=== PATIENT | female | born 1985 | race Caucasian/White ===

== ENCOUNTER 2017-08-10 02:42 | Emergency (ER) | payer MEDICAID ==
[2017-08-10] MEDS ORDERED: Sodium Chloride 0.9% 1,000 ML IV SCH (03:15)
--- NOTE | 2017-08-10 03:17 | EDM.PDOC ---
ED HPI GENERAL MEDICAL PROBLEM - General Chief Complaint: Abdominal Pain Stated Complaint: R ABDOMINAL PAIN Time Seen by Provider: 08/10/17 03:00 Source of Information: Reports: Patient History Limitations: Reports: No Limitations - History of Present Illness INITIAL COMMENTS - FREE TEXT/NARRATIVE: 32-year-old female who has not felt well for the last 3-4 days has developed increasing right-sided abdominal pain for the past 12-24 hours. Nausea but no vomiting, no fevers or chills. Pain with movement and walking. Her only surgeries have been C-sections. She has Graves' disease and they have been adjusting her thyroid medication. Bowels are moving. 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: Reports: Head Trauma Psychiatric History: Reports: Anxiety, Depression, PTSD Endocrine/Metabolic History: Reports: Other (See Below) Other Endocrine/Metabolic History: graves disease - Infectious Disease History Infectious Disease History: Reports: Chicken Pox, Shingles - Past Surgical History HEENT Surgical History: Reports: Adenoidectomy, Tonsillectomy Female Surgical History: Reports: Section Social & Family History - Family History Family Medical History: Noncontributory - Tobacco Use Smoking Status *Q: Current Every Day Smoker Years of Tobacco use: 13 Packs/Tins Daily: 0.1 - Caffeine Use Caffeine Use: Reports: None - Recreational Drug Use Recreational Drug Use: No ED ROS GENERAL - Review of Systems Review Of Systems: See Below Constitutional: Reports: Malaise. Denies: Fever, Chills HEENT: Denies: Throat Pain Respiratory: Reports: Pleuritic Chest Pain. Denies: Shortness of Breath, Cough Cardiovascular: Denies: Chest Pain GI/Abdominal: Reports: Abdominal Pain, Nausea. Denies: Vomiting : Reports: No Symptoms Skin: Reports: No Symptoms Neurological: Denies: Headache ED EXAM, GI/ABD - Physical Exam Exam: See Below Exam Limited By: No Limitations General Appearance: Alert, Mild Distress (Looks uncomfortable) Eyes: Bilateral: Normal Appearance (No jaundice) Respiratory/Chest: No Respiratory Distress, Lungs Clear Cardiovascular: Regular Rate, Rhythm GI/Abdominal Exam: Soft, Tender (Very tender to palpation across the right abdomen, especially the lower abdomen with guarding and moderate rebound) Course - Vital Signs Last Recorded V/S: Last Vital Signs Temp 95.3 F L 08/10/17 02:53 Pulse 61 08/10/17 04:30 Resp 16 08/10/17 04:30 BP 105/73 08/10/17 04:30 Pulse Ox 100 08/10/17 04:30 - Orders/Labs/Meds Orders: Active Orders 24 hr Category Date Time Status Abdomen Pelvis w Cont [CT] Stat Exams 08/10/17 03:50 Taken Labs: Laboratory Tests 08/10/17 08/10/17 08/10/17 Range/Units 03:12 03:12 03:20 WBC 3.9 L (4.5-11.0) K/uL RBC 4.35 (3.30-5.50) M/uL Hgb 13.0 (12.0-15.0) g/dL Hct 39.4 (36.0-48.0) % MCV 91 (80-98) fL MCH 30 (27-31) pg MCHC 33 (32-36) % Plt Count 185 (150-400) K/uL Neut % (Auto) 35 L (36-66) % Lymph % (Auto) 50 H (24-44) % [place] % (Auto) 10 H (2-6) % Eos % (Auto) 4 (2-4) % Baso % (Auto) 1 (0-1) % Sodium (140-148) mmol/L Potassium (3.6-5.2) mmol/L Chloride (100-108) mmol/L Carbon Dioxide (21-32) mmol/L Anion Gap (5.0-14.0) mmol/L BUN (7-18) mg/dL Creatinine (0.6-1.0) mg/dL Est Cr Clr Drug Dosing mL/min Estimated GFR (MDRD) (>60) Glucose (74-106) mg/dL Calcium (8.5-10.1) mg/dL Total Bilirubin (0.2-1.0) mg/dL AST (15-37) U/L ALT (12-78) U/L Alkaline Phosphatase (46-116) U/L Total Protein (6.4-8.2) g/dL Albumin (3.4-5.0) g/dL Globulin (2.3-3.5) g/dL Albumin/Globulin Ratio (1.2-2.2) Amylase (25-115) U/L Lipase (73-393) U/L Urine Color Yellow Urine Appearance Clear Urine pH 7.0 (4.5-8.0) Ur Specific [place] 1.010 (1.008-1.030) Urine Protein Negative (NEGATIVE) mg/dL Urine Glucose (UA) Normal (NEGATIVE) mg/dL Urine Ketones Negative (NEGATIVE) mg/dL Urine Occult Blood Negative (NEGATIVE) Urine Nitrite Negative (NEGATIVE) Urine Bilirubin Negative (NEGATIVE) Urine Urobilinogen Normal (NORMAL) mg/dL Ur Leukocyte Esterase Moderate (NEGATIVE) Urine RBC 0-5 (0-5) Urine WBC 5-10 H (0-5) Ur Epithelial Cells Few Amorphous Sediment Not seen Urine Bacteria Moderate Urine Mucus Not seen Urine HCG, Qual Negative 08/10/17 Range/Units 03:20 WBC (4.5-11.0) K/uL RBC (3.30-5.50) M/uL Hgb (12.0-15.0) g/dL Hct (36.0-48.0) % MCV (80-98) fL MCH (27-31) pg MCHC (32-36) % Plt Count (150-400) K/uL Neut % (Auto) (36-66) % Lymph % (Auto) (24-44) % [place] % (Auto) (2-6) % Eos % (Auto) (2-4) % Baso % (Auto) (0-1) % Sodium 142 (140-148) mmol/L Potassium 3.4 L (3.6-5.2) mmol/L Chloride 104 (100-108) mmol/L Carbon Dioxide 27 (21-32) mmol/L Anion Gap 14.4 H (5.0-14.0) mmol/L BUN 9 (7-18) mg/dL Creatinine 0.8 (0.6-1.0) mg/dL Est Cr Clr Drug Dosing 98.18 mL/min Estimated GFR (MDRD) > 60 (>60) Glucose 87 (74-106) mg/dL Calcium 8.3 L (8.5-10.1) mg/dL Total Bilirubin 0.3 (0.2-1.0) mg/dL AST 27 (15-37) U/L ALT 16 (12-78) U/L Alkaline Phosphatase 37 L (46-116) U/L Total Protein 7.3 (6.4-8.2) g/dL Albumin 3.7 (3.4-5.0) g/dL Globulin 3.6 H (2.3-3.5) g/dL Albumin/Globulin Ratio 1.0 L (1.2-2.2) Amylase 79 (25-115) U/L Lipase 258 (73-393) U/L Urine Color Urine Appearance Urine pH (4.5-8.0) Ur Specific [place] (1.008-1.030) Urine Protein (NEGATIVE) mg/dL Urine Glucose (UA) (NEGATIVE) mg/dL Urine Ketones (NEGATIVE) mg/dL Urine Occult Blood (NEGATIVE) Urine Nitrite (NEGATIVE) Urine Bilirubin (NEGATIVE) Urine Urobilinogen (NORMAL) mg/dL Ur Leukocyte Esterase (NEGATIVE) Urine RBC (0-5) Urine WBC (0-5) Ur Epithelial Cells Amorphous Sediment Urine Bacteria Urine Mucus Urine HCG, Qual Meds: Medications Discontinued Medications Generic Name Dose Route Start Last Admin Trade Name Freq PRN Reason Stop Dose Admin Sodium Chloride 1,000 mls @ 500 mls/hr 08/10/17 03:15 08/10/17 03:24 Normal Saline IV 500 mls/hr ASDIRECTED BETSY Administration Sodium Chloride 72 mls @ 3.2 mls/sec 08/10/17 04:11 08/10/17 04:21 Normal Saline IV 08/10/17 04:12 3.2 mls/sec ASDIRECTED STA Administration Iopamidol 100 ml 08/10/17 04:11 08/10/17 04:21 Isovue-300 (61%) IV 08/10/17 04:12 100 ml . DIRECTED STA Administration Ketorolac Tromethamine 30 mg 08/10/17 04:51 08/10/17 04:56 Toradol IVPUSH 08/10/17 04:52 30 mg ONETIME ONE Administration - Re-Assessments/Exams Free Text/Narrative Re-Assessment/Exam: 08/10/17 03:16 Normal saline at 500 mL an hour was started, CBC, CMP, amylase and lipase were obtained as well as a UA with urine . Intent is to image the abdomen with CT scan after labs return. 08/10/17 04:44 White count was only 4200 with a very high percentage of lymphocytes and monocytes relatively. UA was generally clear, urine was negative. CMP was basically unremarkable. A CT with IV contrast was then obtained of the abdomen and pelvis. 08/10/17 04:49 CT really showed no acute findings. She was given 30 mg of Toradol through the IV, and encouraged to give it 1 or 2 more days assist just might be a viral process running its course. She can return if worsening. Departure - Departure Time of Disposition: 05:05 Disposition: Home, Self-Care 01 Condition: Good Clinical Impression: Abdominal pain Qualifiers: Abdominal location: right lower quadrant Qualified Code(s): R10.31 - Right lower quadrant pain - Discharge Information Instructions: Viral Gastroenteritis, Adult, [id number] Referrals: PCP,None [Primary Care Provider] - Forms: ED Department Discharge Care Plan Goals: Concentrated on fluids, and increase diet as tolerated. Increase activity as tolerated and return anytime if worsening or consider rechecking in 2-3 days if not improving satisfactorily. - My Orders Last 24 Hours: My Active Orders 08/10/17 03:50 Abdomen Pelvis w Cont [CT] Stat - Assessment/Plan Last 24 Hours: My Active Orders 08/10/17 03:50 Abdomen Pelvis w Cont [CT] Stat
[2017-08-10] MEDS ORDERED: Iopamidol 612 MG/ML 100 ML Bottle IV STA (04:11)
[2017-08-10] MEDS ORDERED: Ketorolac 30 MG/ML SDV IVPUSH ONE (04:51)
== END 2017-08-10 05:22 | disposition home or self-care (01) ==
LOC: JP.ED 02:42
DX: R10.31 Right lower quadrant pain (principal); Z79.899 Other long term (current) drug therapy; F17.210 Nicotine dependence, cigarettes, uncomplicated
CPT/HCPCS: 36415; 74177; 80053; 81001; 81025; 82150; 83690; 85025; 96361; 96374; 99284; J1885; J7030; J7040; Q9967

== ENCOUNTER 2019-08-10 18:15 | Inpatient (IN) | payer MEDICAID ==
--- NOTE | 2019-08-10 19:26 | EDM.PDOC ---
ED HPI GENERAL MEDICAL PROBLEM - General Chief Complaint: Abdominal Pain Stated Complaint: MEDICAL VIA [facility] Time Seen by Provider: 08/10/19 19:38 Source of Information: Reports: Patient History Limitations: Reports: No Limitations - History of Present Illness INITIAL COMMENTS - FREE TEXT/NARRATIVE: 34 years old female patient presented to the ER with a chief complaint of abdominal pain started 5 days ago, intermittent, progressively getting worse, dull aching and sharp pain, due to her right flank area. Associated with nausea and vomiting. Fever of 103 yesterday. She thought she is constipated and started taking laxative. Now have loose stool. Denies any urinary frequency urgency or dysuria. Denies any blood in the urine or stool. Denies any chest pain or shortness breath. 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: Reports: Head Trauma, Migraines Psychiatric History: Reports: Anxiety, Depression, PTSD Endocrine/Metabolic History: Reports: Other (See Below) Other Endocrine/Metabolic History: graves disease - Infectious Disease History Infectious Disease History: Reports: Chicken Pox, Shingles - Past Surgical History HEENT Surgical History: Reports: Adenoidectomy, Tonsillectomy Female Surgical History: Reports: Section, Tubal Ligation Social & Family History - Family History Family Medical History: Noncontributory - Tobacco Use Smoking Status *Q: Current Every Day Smoker Years of Tobacco use: 20 Packs/Tins Daily: 0.2 Used Tobacco, but Quit: No Second Hand Smoke Exposure: Yes - Caffeine Use Caffeine Use: Reports: Soda - Recreational Drug Use Recreational Drug Use: No ED ROS GENERAL - Review of Systems Review Of Systems: Comprehensive ROS is negative, except as noted in HPI. ED EXAM, GI/ABD - Physical Exam Exam: See Below Exam Limited By: No Limitations General Appearance: Alert, WD/WN, No Apparent Distress, Anxious Eyes: Bilateral: Normal Appearance, EOMI Nose: Normal Inspection, Normal Mucosa, No Blood Throat/Mouth: Normal Inspection, Normal Lips, Normal Teeth, Normal Gums, Normal Oropharynx, Normal Voice, No Airway Compromise Head: Atraumatic, Normocephalic Neck: Normal Inspection, Supple, Non-Tender, Full Range of Motion Respiratory/Chest: No Respiratory Distress, Lungs Clear, Normal Breath Sounds, No Accessory Muscle Use, Chest Non-Tender Cardiovascular: Normal Peripheral Pulses, Regular Rate, Rhythm, No Edema, No Gallop, No JVD, No Murmur, No Rub GI/Abdominal Exam: Normal Bowel Sounds, No Organomegaly, No Distention, No Mass , Tender, Other (Tenderness of the right lower quadrant, left lower quadrant, right flank area. No guarding no rebound) Extremities: Normal Inspection, Normal Range of Motion, Non-Tender, Normal Capillary Refill, No Pedal Edema Neurological: Alert, Oriented, CN II-XII Intact, Normal Cognition, Normal Gait, Normal Reflexes, No Motor/Sensory Deficits Psychiatric: Anxious Skin Exam: Warm, Dry, Intact, Normal Color, No Rash Course - Vital Signs Last Recorded V/S: Last Vital Signs Temp 37.6 C 08/10/19 18:40 Pulse 91 08/10/19 20:13 Resp 18 08/10/19 20:13 BP 99/63 08/10/19 20:13 Pulse Ox 99 08/10/19 20:13 - Orders/Labs/Meds Orders: Active Orders 24 hr Category Date Time Status Iopamidol [Isovue-300 (61%)] Med 08/10/19 20:00 Active 100 ml IV . DIRECTED Sodium Chloride 0.9% [Normal Saline] 80 ml Med 08/10/19 20:00 Active IV ASDIRECTED Sodium Chloride 0.9% [Saline Flush] Med 08/10/19 19:47 Active 10 ml FLUSH ASDIRECTED PRN cefTRIAXone [Rocephin] 2 gm Med 08/10/19 20:39 Ordered Sodium Chloride 0.9% [Normal Saline] 50 ml IV ONETIME Medication Orders Sodium Chloride (Normal Saline) 80 mls @ 3 mls/sec IV ASDIRECTED BETSY Last Admin: 08/10/19 20:12 Dose: 3 mls/sec Ceftriaxone Sodium 2 gm/ (Sodium Chloride) 50 mls @ 100 mls/hr IV ONETIME ONE Stop: 08/10/19 21:08 Iopamidol (Isovue-300 (61%)) 100 ml IV . DIRECTED BESTY Last Admin: 08/10/19 20:12 Dose: 100 ml Sodium Chloride (Saline Flush) 10 ml FLUSH ASDIRECTED PRN PRN Reason: Keep Vein Open Last Admin: 08/10/19 20:12 Dose: 10 ml Labs: Laboratory Tests 08/10/19 08/10/19 08/10/19 Range/Units 18:39 18:39 18:39 WBC 10.2 (4.5-11.0) K/uL RBC 4.33 (3.30-5.50) M/uL Hgb 12.5 D (12.0-15.0) g/dL Hct 38.8 (36.0-48.0) % MCV 90 (80-98) fL MCH 29 (27-31) pg MCHC 32 (32-36) % Plt Count 184 (150-400) K/uL Neut % (Auto) 83 H (36-66) % Lymph % (Auto) 7 L (24-44) % [place] % (Auto) 10 H (2-6) % Eos % (Auto) 1 L (2-4) % Baso % (Auto) 0 (0-1) % Sodium 134 L (140-148) mmol/L Potassium 3.7 (3.6-5.2) mmol/L Chloride 96 L (100-108) mmol/L Carbon Dioxide 27 (21-32) mmol/L Anion Gap 14.7 H (5.0-14.0) mmol/L BUN 8 D (7-18) mg/dL Creatinine 1.0 (0.6-1.0) mg/dL Est Cr Clr Drug Dosing 77.08 mL/min Estimated GFR (MDRD) > 60 (>60) Glucose 97 (74-106) mg/dL Lactic Acid 1.2 (0.4-2.0) mmol/L Calcium 8.8 (8.5-10.1) mg/dL Total Bilirubin 1.2 H D (0.2-1.0) mg/dL AST 51 H D (15-37) U/L ALT 55 D (12-78) U/L Alkaline Phosphatase 100 D (46-116) U/L C-Reactive Protein 23.89 H (0.0-0.3) mg/dL Total Protein 7.4 (6.4-8.2) g/dL Albumin 3.1 L (3.4-5.0) g/dL Globulin 4.3 H (2.3-3.5) g/dL Albumin/Globulin Ratio 0.7 L (1.2-2.2) Lipase 50 L (73-393) U/L Free T4 0.91 (0.76-1.46) ng/dL TSH, Ultra Sensitive 31.294 H (0.358-3.740) uIU/mL Urine Color (YELLOW) Urine Appearance (CLEAR) Urine pH (5.0-8.0) Ur Specific [place] (1.008-1.030) Urine Protein (NEGATIVE) mg/dL Urine Glucose (UA) (NEGATIVE) mg/dL Urine Ketones (NEGATIVE) mg/dL Urine Occult Blood (NEGATIVE) Urine Nitrite (NEGATIVE) Urine Bilirubin (NEGATIVE) Urine Urobilinogen (0.2-1.0) EU/dL Ur Leukocyte Esterase (NEGATIVE) Urine RBC (0-5) Urine WBC (0-5) Ur Epithelial Cells Amorphous Sediment Urine Bacteria Urine Mucus Urine HCG, Qual Urine Opiates Screen (NEGATIVE) Ur Oxycodone Screen (NEGATIVE) Urine Methadone Screen (NEGATIVE) Ur Propoxyphene Screen (NEGATIVE) Ur Barbiturates Screen (NEGATIVE) Ur Tricyclics Screen (NEGATIVE) Ur Phencyclidine Scrn (NEGATIVE) Ur Amphetamine Screen (NEGATIVE) U Methamphetamines Scrn (NEGATIVE) Urine MDMA Screen (NEGATIVE) U Benzodiazepines Scrn (NEGATIVE) U Cocaine Metab Screen (NEGATIVE) U Marijuana (THC) Screen (NEGATIVE) 08/10/19 08/10/19 08/10/19 Range/Units 18:42 18:42 19:38 WBC (4.5-11.0) K/uL RBC (3.30-5.50) M/uL Hgb (12.0-15.0) g/dL Hct (36.0-48.0) % MCV (80-98) fL MCH (27-31) pg MCHC (32-36) % Plt Count (150-400) K/uL Neut % (Auto) (36-66) % Lymph % (Auto) (24-44) % [place] % (Auto) (2-6) % Eos % (Auto) (2-4) % Baso % (Auto) (0-1) % Sodium (140-148) mmol/L Potassium (3.6-5.2) mmol/L Chloride (100-108) mmol/L Carbon Dioxide (21-32) mmol/L Anion Gap (5.0-14.0) mmol/L BUN (7-18) mg/dL Creatinine (0.6-1.0) mg/dL Est Cr Clr Drug Dosing mL/min Estimated GFR (MDRD) (>60) Glucose (74-106) mg/dL Lactic Acid (0.4-2.0) mmol/L Calcium (8.5-10.1) mg/dL Total Bilirubin (0.2-1.0) mg/dL AST (15-37) U/L ALT (12-78) U/L Alkaline Phosphatase (46-116) U/L C-Reactive Protein (0.0-0.3) mg/dL Total Protein (6.4-8.2) g/dL Albumin (3.4-5.0) g/dL Globulin (2.3-3.5) g/dL Albumin/Globulin Ratio (1.2-2.2) Lipase (73-393) U/L Free T4 (0.76-1.46) ng/dL TSH, Ultra Sensitive (0.358-3.740) uIU/mL Urine Color Yellow (YELLOW) Urine Appearance Cloudy A (CLEAR) Urine pH 6.5 (5.0-8.0) Ur Specific [place] 1.010 (1.008-1.030) Urine Protein Trace H (NEGATIVE) mg/dL Urine Glucose (UA) Negative (NEGATIVE) mg/dL Urine Ketones Negative (NEGATIVE) mg/dL Urine Occult Blood Small H (NEGATIVE) Urine Nitrite Positive H (NEGATIVE) Urine Bilirubin Negative (NEGATIVE) Urine Urobilinogen 0.2 (0.2-1.0) EU/dL Ur Leukocyte Esterase Small H (NEGATIVE) Urine RBC 0-5 (0-5) Urine WBC Packed H (0-5) Ur Epithelial Cells Few Amorphous Sediment Not seen Urine Bacteria Many Urine Mucus Not seen Urine HCG, Qual Negative Urine Opiates Screen Negative (NEGATIVE) Ur Oxycodone Screen Negative (NEGATIVE) Urine Methadone Screen Negative (NEGATIVE) Ur Propoxyphene Screen Negative (NEGATIVE) Ur Barbiturates Screen Negative (NEGATIVE) Ur Tricyclics Screen Negative (NEGATIVE) Ur Phencyclidine Scrn Negative (NEGATIVE) Ur Amphetamine Screen Presumptive positive H (NEGATIVE) U Methamphetamines Scrn Presumptive positive H (NEGATIVE) Urine MDMA Screen Negative (NEGATIVE) U Benzodiazepines Scrn Negative (NEGATIVE) U Cocaine Metab Screen Negative (NEGATIVE) U Marijuana (THC) Screen Negative (NEGATIVE) Meds: Medications Generic Name Dose Route Start Last Admin Trade Name Freq PRN Reason Stop Dose Admin Sodium Chloride 80 mls @ 3 mls/sec 08/10/19 20:00 08/10/19 20:12 Normal Saline IV 3 mls/sec ASDIRECTED BETSY Administration Ceftriaxone Sodium 2 gm/ 50 mls @ 100 mls/hr 08/10/19 20:39 Sodium Chloride IV 08/10/19 21:08 ONETIME ONE Iopamidol 100 ml 08/10/19 20:00 08/10/19 20:12 Isovue-300 (61%) IV 100 ml . DIRECTED BETSY Administration Sodium Chloride 10 ml 08/10/19 19:47 08/10/19 20:12 Saline Flush FLUSH 10 ml ASDIRECTED PRN Administration Keep Vein Open Discontinued Medications Generic Name Dose Route Start Last Admin Trade Name Freq PRN Reason Stop Dose Admin Sodium Chloride 1,000 mls @ 999 mls/hr 08/10/19 19:34 08/10/19 20:08 Normal Saline IV 08/10/19 20:34 999 mls/hr .BOLUS STA Administration Morphine Sulfate 4 mg 08/10/19 19:35 08/10/19 19:58 Morphine IVPUSH 08/10/19 19:36 4 mg ONETIME ONE Administration Ondansetron HCl 4 mg 08/10/19 19:35 08/10/19 19:54 Zofran IVPUSH 08/10/19 19:36 4 mg ONETIME ONE Administration - Re-Assessments/Exams Free Text/Narrative Re-Assessment/Exam: 08/10/19 19:41 Patient was seen and examined shortly after arrival. The stable. Given 1 L normal saline bolus, 4 mg IV morphine, 4 mg IV Zofran. Lab and imaging reviewed. CT scan shows sign of right-sided pyelonephritis, urethritis, cystitis. Her TSH is very high. Urine is positive for meth. Given 2 g IV Rocephin. Case was discussed with Jennifer nurse practitioner and she accepted admission for further management. Patient agrees with the plan. Stable for admission. 08/10/19 20:44 Departure - Departure Time of Disposition: 20:43 Disposition: Admitted As Inpatient 66 Clinical Impression: Elevated TSH, UTI (urinary tract infection), Abdominal pain, Drug use, Pyelonephritis - Discharge Information Referrals: PCP,None [Primary Care Provider] - Forms: ED Department Discharge Sepsis Event Note - Evaluation Sepsis Screening Result: No Definite Risk - Focused Exam Vital Signs: Vital Signs Temp Pulse Resp BP Pulse Ox 08/10/19 20:13 91 18 99/63 99 08/10/19 18:40 37.6 C 93 16 106/56 L 100 08/10/19 18:33 37.6 C 93 16 106/56 L 100 Date Exam was Performed: 08/10/19 Time Exam was Performed: 20:43 - My Orders Last 24 Hours: My Active Orders 08/10/19 19:47 Sodium Chloride 0.9% [Saline Flush] 10 ml FLUSH ASDIRECTED PRN 08/10/19 20:00 Iopamidol [Isovue-300 (61%)] 100 ml IV . DIRECTED Sodium Chloride 0.9% [Normal Saline] 80 ml IV ASDIRECTED 08/10/19 20:39 cefTRIAXone [Rocephin] 2 gm Sodium Chloride 0.9% [Normal Saline] 50 ml IV ONETIME - Assessment/Plan Last 24 Hours: My Active Orders 08/10/19 19:47 Sodium Chloride 0.9% [Saline Flush] 10 ml FLUSH ASDIRECTED PRN 08/10/19 20:00 Iopamidol [Isovue-300 (61%)] 100 ml IV . DIRECTED Sodium Chloride 0.9% [Normal Saline] 80 ml IV ASDIRECTED 08/10/19 20:39 cefTRIAXone [Rocephin] 2 gm Sodium Chloride 0.9% [Normal Saline] 50 ml IV ONETIME Plan: Admission to [facility]
[2019-08-10] MEDS ORDERED: Sodium Chloride 0.9% 1,000 ML IV STA (19:34)
[2019-08-10] MEDS ORDERED: Morphine 4 MG/ML Syringe IVPUSH ONE (19:35)
[2019-08-10] MEDS ORDERED: Ondansetron 4 MG/2 ML SDV IVPUSH ONE (19:35)
[2019-08-10] MEDS ORDERED: Sodium Chloride 0.9% 10 ML Syringe FLUSH PRN (19:47)
[2019-08-10] MEDS ORDERED: Sodium Chloride 0.9% 80 ML IV SCH (20:00)
[2019-08-10] MEDS ORDERED: Iopamidol 612 MG/ML 100 ML Bottle IV SCH (20:00)
--- NOTE | 2019-08-10 20:38 | CRLCT ---
Indication: Lower abdominal pain. Technique: Multiple contiguous axial images were obtained from the lung bases to the symphysis pubis after the intravenous administration of 100 cc Isovue-300. Please note that all CT scans at this facility use dose modulation, iterative reconstruction, and/or weight-based dosing when appropriate to reduce radiation dose to as low as reasonably achievable. Comparison: August 10, 2017. Findings: The lung bases are clear. No infiltrate, pleural effusion, pneumothorax identified. Heart is normal in size. No pericardial effusions identified. Focal fatty infiltration of the liver is identified at the ligamentum teres. The liver, spleen, pancreas, adrenals, and kidneys are normal. No intrahepatic biliary ductal dilatation is identified. Irregularity of the upper pole of the right kidney is identified, stable. Thickening of the wall of the right ureter is identified. Thickening of the wall of the urinary bladder is identified. The right kidney has a striated appearance. The findings are worrisome for pyelonephritis, ureteritis, and cystitis. Irregularity of the superior pole the left kidney is identified with atrophy. This is stable. In the pelvis, the uterus is grossly normal. A probable small left ovarian cyst is identified. No free air or is identified within the abdomen or pelvis. Small amount of free fluid is identified within the pelvis. The small and large bowel are normal in caliber. A moderate amount of stool is identified within the colon. No lytic or blastic lesions of the spine are identified. Impression: Findings most consistent with a right-sided pyelonephritis, ureteritis, and cystitis. Irregularity of the superior pole of the left kidney, stable. The findings were called to Dr. Simpson at the time of this dictation Please note that all CT scans at this facility use dose modulation, iterative reconstruction, and/or weight-based dosing when appropriate to reduce radiation dose to as low as reasonably achievable. Dictated by Barbara Coughlin MD @ Aug 10 2019 8:27PM Signed by Dr. Barbara Coughlin @ Aug 10 2019 8:38PM
[2019-08-10] MEDS ORDERED: cefTRIAXone 2 GM in Sodium Chloride 0.9% 50 ML IV ONE (20:39)
--- NOTE | 2019-08-10 21:52 | PCM.HP.2 ---
H&P History of Present Illness - General Date of Service: 08/10/19 Admit Problem/Dx: Admission Diagnosis/Problem Admission Diagnosis/Problem Pyelonephritis Source of Information: Patient, EMS, Family, Provider, RN History Limitations: Reports: No Limitations - History of Present Illness Initial Comments - Free Text/Narative: 34 years old female patient presented to the ER with a chief complaint of abdominal pain started 5 days ago, intermittent, progressively getting worse, dull aching and sharp pain, due to her right flank area. Associated with nausea and vomiting. Fever of 103 yesterday. She thought she is constipated and started taking laxative. Now have loose stool. Denies any urinary frequency urgency or dysuria. Denies any blood in the urine or stool. Denies any chest pain or shortness breath. Right Lower Abdomen Pain Score (Numer Onset of Symptoms: Reports: Gradual Duration of Symptoms: Reports: Day(s): (four), Getting Worse Location: Reports: Abdomen, Radiates to (right lower back) Quality: Reports: Sharp, Stabbing, Throbbing Severity: Severe Improves with: Reports: None Worsens with: Reports: None Associated Symptoms: Reports: Fever/Chills, Loss of Appetite, Nausea/Vomiting, Weakness Right Lower Abdomen Pain Score (Numeric/FACES): 5 - Related Data Allergies/Adverse Reactions: Allergies Allergy/AdvReac Type Severity Reaction Status Date / Time No Known Allergies Allergy Verified 08/10/19 18:40 Home Medications: Home Meds Levothyroxine 175 mcg PO ACBREAKFAST 08/10/17 [History] Fluticasone Propionate [Flonase] 2 spray IN ASDIRECTED PRN 07/07/18 [History] Sertraline [Zoloft] 150 mg PO DAILY 08/10/19 [History] hydrOXYzine HCL [hydrOXYzine] 1 tab PO QID PRN 08/10/19 [History] lamoTRIgine [Lamotrigine] 1 tab PO DAILY 08/10/19 [History] 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: Neurological History: Reports: Head Trauma, Migraines Psychiatric History: Reports: Anxiety, Depression, PTSD Endocrine/Metabolic History: Reports: Other (See Below) Other Endocrine/Metabolic History: graves disease - Infectious Disease History Infectious Disease History: Reports: Chicken Pox, Shingles - Past Surgical History HEENT Surgical History: Reports: Adenoidectomy, Tonsillectomy Female Surgical History: Reports: Section, Tubal Ligation Social & Family History - Family History Family Medical History: Noncontributory - Tobacco Use Smoking Status *Q: Current Every Day Smoker Years of Tobacco use: 20 Packs/Tins Daily: 0.2 Used Tobacco, but Quit: No Second Hand Smoke Exposure: Yes - Caffeine Use Caffeine Use: Reports: Soda - Recreational Drug Use Recreational Drug Use: No - Living Situation & Occupation Living situation: Reports: Single Occupation: Employed (lives with her 4 children age 4 yr to 16 yrs. 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 States "someone" must of put meth in her food. Drew denies any drugs use. crying and sobbing. requesting retesting and social media sr strategy manager consult.) HEENT: Reports: No Symptoms, Other (no teeth present) Pulmonary: Reports: No Symptoms Cardiovascular: Reports: No Symptoms Gastrointestinal: Reports: Abdominal Pain, Constipation, Nausea, Vomiting Genitourinary: Reports: Flank Pain (right) Musculoskeletal: Reports: Back Pain (right lower) Skin: Reports: No Symptoms Psychiatric: Reports: Depression, Anxiety, Other (crying during the whole exam due to positive drug screen. she denies drug use.) Neurological: Reports: No Symptoms Hematologic/Lymphatic: Reports: No Symptoms Immunologic: Reports: No Symptoms Exam - Exam Exam: See Below - Vital Signs Vital Signs: Last Vital Signs Temp 37.6 C 08/10/19 18:40 Pulse 105 H 08/10/19 21:32 Resp 18 08/10/19 20:13 BP 115/78 08/10/19 21:32 Pulse Ox 100 08/10/19 21:32 Weight: 70.76 kg - Exam General: Alert, Oriented, Cooperative, Mild Distress (crying during the whole exam due to positive drug screen. denies drug use.), Other (crying with tears, Mom is soothing Drew. denies any drugs. Instructed Drew and her Mom we are not the drug Police, will not call Police for this, if children are involve notify CPS. Mom states kids are already in Foster care. ) HEENT: PERRLA, Mucosa Moist & [place], Nares Patent, Other (no teeth. mouth is pink. crying with tears.) Neck: Supple, Trachea Midline Lungs: Clear to Auscultation, Normal Respiratory Effort Cardiovascular: Regular Rate, Regular Rhythm, Normal S1, Normal S2 GI/Abdominal Exam: Normal Bowel Sounds, Soft, Tender (lower abdomen) (Female) Exam: Deferred Rectal (Female) Exam: Deferred Back Exam: Normal Inspection, CVA Tenderness (R) Extremities: Normal Inspection, Normal Range of Motion, Non-Tender, No Pedal Edema, Normal Capillary Refill Skin: Warm, Dry, Intact Neurological: Reflexes Equal Bilateral, Strength Equal Bilateral Neuro Extensive - Mental Status: Alert, Oriented x3, Normal Mood/Affect, Normal Cognition Psychiatric: Alert, Other (crying) - Patient Data Lab Results Last 24 hrs: Laboratory Results - last 24 hr 08/10/19 08/10/19 08/10/19 Range/Units 18:39 18:39 18:39 WBC 10.2 (4.5-11.0) K/uL RBC 4.33 (3.30-5.50) M/uL Hgb 12.5 D (12.0-15.0) g/dL Hct 38.8 (36.0-48.0) % MCV 90 (80-98) fL MCH 29 (27-31) pg MCHC 32 (32-36) % Plt Count 184 (150-400) K/uL Neut % (Auto) 83 H (36-66) % Lymph % (Auto) 7 L (24-44) % [place] % (Auto) 10 H (2-6) % Eos % (Auto) 1 L (2-4) % Baso % (Auto) 0 (0-1) % Sodium 134 L (140-148) mmol/L Potassium 3.7 (3.6-5.2) mmol/L Chloride 96 L (100-108) mmol/L Carbon Dioxide 27 (21-32) mmol/L Anion Gap 14.7 H (5.0-14.0) mmol/L BUN 8 D (7-18) mg/dL Creatinine 1.0 (0.6-1.0) mg/dL Est Cr Clr Drug Dosing 77.08 mL/min Estimated GFR (MDRD) > 60 (>60) Glucose 97 (74-106) mg/dL Lactic Acid 1.2 (0.4-2.0) mmol/L Calcium 8.8 (8.5-10.1) mg/dL Total Bilirubin 1.2 H D (0.2-1.0) mg/dL AST 51 H D (15-37) U/L ALT 55 D (12-78) U/L Alkaline Phosphatase 100 D (46-116) U/L C-Reactive Protein 23.89 H (0.0-0.3) mg/dL Total Protein 7.4 (6.4-8.2) g/dL Albumin 3.1 L (3.4-5.0) g/dL Globulin 4.3 H (2.3-3.5) g/dL Albumin/Globulin Ratio 0.7 L (1.2-2.2) Lipase 50 L (73-393) U/L Free T4 0.91 (0.76-1.46) ng/dL TSH, Ultra Sensitive 31.294 H (0.358-3.740) uIU/mL Urine Color (YELLOW) Urine Appearance (CLEAR) Urine pH (5.0-8.0) Ur Specific [place] (1.008-1.030) Urine Protein (NEGATIVE) mg/dL Urine Glucose (UA) (NEGATIVE) mg/dL Urine Ketones (NEGATIVE) mg/dL Urine Occult Blood (NEGATIVE) Urine Nitrite (NEGATIVE) Urine Bilirubin (NEGATIVE) Urine Urobilinogen (0.2-1.0) EU/dL Ur Leukocyte Esterase (NEGATIVE) Urine RBC (0-5) Urine WBC (0-5) Ur Epithelial Cells Amorphous Sediment Urine Bacteria Urine Mucus Urine HCG, Qual Urine Opiates Screen (NEGATIVE) Ur Oxycodone Screen (NEGATIVE) Urine Methadone Screen (NEGATIVE) Ur Propoxyphene Screen (NEGATIVE) Ur Barbiturates Screen (NEGATIVE) Ur Tricyclics Screen (NEGATIVE) Ur Phencyclidine Scrn (NEGATIVE) Ur Amphetamine Screen (NEGATIVE) U Methamphetamines Scrn (NEGATIVE) Urine MDMA Screen (NEGATIVE) U Benzodiazepines Scrn (NEGATIVE) U Cocaine Metab Screen (NEGATIVE) U Marijuana (THC) Screen (NEGATIVE) 08/10/19 08/10/19 08/10/19 Range/Units 18:42 18:42 19:38 WBC (4.5-11.0) K/uL RBC (3.30-5.50) M/uL Hgb (12.0-15.0) g/dL Hct (36.0-48.0) % MCV (80-98) fL MCH (27-31) pg MCHC (32-36) % Plt Count (150-400) K/uL Neut % (Auto) (36-66) % Lymph % (Auto) (24-44) % [place] % (Auto) (2-6) % Eos % (Auto) (2-4) % Baso % (Auto) (0-1) % Sodium (140-148) mmol/L Potassium (3.6-5.2) mmol/L Chloride (100-108) mmol/L Carbon Dioxide (21-32) mmol/L Anion Gap (5.0-14.0) mmol/L BUN (7-18) mg/dL Creatinine (0.6-1.0) mg/dL Est Cr Clr Drug Dosing mL/min Estimated GFR (MDRD) (>60) Glucose (74-106) mg/dL Lactic Acid (0.4-2.0) mmol/L Calcium (8.5-10.1) mg/dL Total Bilirubin (0.2-1.0) mg/dL AST (15-37) U/L ALT (12-78) U/L Alkaline Phosphatase (46-116) U/L C-Reactive Protein (0.0-0.3) mg/dL Total Protein (6.4-8.2) g/dL Albumin (3.4-5.0) g/dL Globulin (2.3-3.5) g/dL Albumin/Globulin Ratio (1.2-2.2) Lipase (73-393) U/L Free T4 (0.76-1.46) ng/dL TSH, Ultra Sensitive (0.358-3.740) uIU/mL Urine Color Yellow (YELLOW) Urine Appearance Cloudy A (CLEAR) Urine pH 6.5 (5.0-8.0) Ur Specific [place] 1.010 (1.008-1.030) Urine Protein Trace H (NEGATIVE) mg/dL Urine Glucose (UA) Negative (NEGATIVE) mg/dL Urine Ketones Negative (NEGATIVE) mg/dL Urine Occult Blood Small H (NEGATIVE) Urine Nitrite Positive H (NEGATIVE) Urine Bilirubin Negative (NEGATIVE) Urine Urobilinogen 0.2 (0.2-1.0) EU/dL Ur Leukocyte Esterase Small H (NEGATIVE) Urine RBC 0-5 (0-5) Urine WBC Packed H (0-5) Ur Epithelial Cells Few Amorphous Sediment Not seen Urine Bacteria Many Urine Mucus Not seen Urine HCG, Qual Negative Urine Opiates Screen Negative (NEGATIVE) Ur Oxycodone Screen Negative (NEGATIVE) Urine Methadone Screen Negative (NEGATIVE) Ur Propoxyphene Screen Negative (NEGATIVE) Ur Barbiturates Screen Negative (NEGATIVE) Ur Tricyclics Screen Negative (NEGATIVE) Ur Phencyclidine Scrn Negative (NEGATIVE) Ur Amphetamine Screen Presumptive positive H (NEGATIVE) U Methamphetamines Scrn Presumptive positive H (NEGATIVE) Urine MDMA Screen Negative (NEGATIVE) U Benzodiazepines Scrn Negative (NEGATIVE) U Cocaine Metab Screen Negative (NEGATIVE) U Marijuana (THC) Screen Negative (NEGATIVE) Result Diagrams: 08/10/19 18:39 08/10/19 18:39 Sepsis Event Note - Evaluation Sepsis Screening Result: No Definite Risk - Focused Exam Vital Signs: Vital Signs Temp Pulse Resp BP Pulse Ox 08/10/19 21:32 105 H 115/78 100 08/10/19 20:59 87 112/65 100 08/10/19 20:13 91 18 99/63 99 08/10/19 18:40 37.6 C 93 16 106/56 L 100 08/10/19 18:33 37.6 C 93 16 106/56 L 100 Date Exam was Performed: 08/10/19 Time Exam was Performed: 22:26 - Problem List (1) Pyelonephritis SNOMED Code(s): 74769106 ICD Code: N12 - TUBULO-INTERSTITIAL NEPHRITIS, NOT SPCF ACUTE OR CHRONIC Status: Acute Current Visit: Yes (2) Drug use SNOMED Code(s): 876694409 ICD Code: F19.90 - OTHER PSYCHOACTIVE SUBSTANCE USE, UNSPECIFIED, UNCOMPLICATED Status: Acute Current Visit: Yes (3) Elevated TSH SNOMED Code(s): 183815663 ICD Code: R79.89 - OTHER SPECIFIED ABNORMAL FINDINGS OF BLOOD CHEMISTRY Status: Acute Current Visit: Yes Problem List Initiated/Reviewed/Updated: Yes Orders Last 24hrs: Active Orders 24 hr Category Date Time Status Patient Status Manage Transfer [TRANSFER] Routine ADT 01/14/20 21:35 Active AMPHETAMINE SCREEN RFLX Routine Lab 08/10/19 21:43 Ordered Iopamidol [Isovue-300 (61%)] Med 08/10/19 20:00 Active 100 ml IV . DIRECTED Sodium Chloride 0.9% [Normal Saline] 80 ml Med 08/10/19 20:00 Active IV ASDIRECTED Sodium Chloride 0.9% [Saline Flush] Med 08/10/19 19:47 Active 10 ml FLUSH ASDIRECTED PRN Resuscitation Status Routine Resus Stat 08/10/19 21:36 Ordered Medication Orders Sodium Chloride (Normal Saline) 80 mls @ 3 mls/sec IV ASDIRECTED BETSY Last Admin: 08/10/19 20:12 Dose: 3 mls/sec Iopamidol (Isovue-300 (61%)) 100 ml IV . DIRECTED [facility] Last Admin: 08/10/19 20:12 Dose: 100 ml Sodium Chloride (Saline Flush) 10 ml FLUSH ASDIRECTED PRN PRN Reason: Keep Vein Open Last Admin: 08/10/19 20:12 Dose: 10 ml Assessment/Plan Comment:: ASSESSMENT AND PLAN: pyelonephritis right sided. This is a 34 year old female present to ER via EMS with reports of 4 days of abdominal pain, nausea, vomiting and diarrhea. Today called the ambulance because unable to get out of bed due to weakness. ER work-up labs wbc 10.2, elevated LFT, TSH. CT scan of abdomen-pelvis shows right sided pyelonephritis, ureteritis and cystitis. Given 1 L normal saline bolus, 4 mg IV morphine, 4 mg IV Zofran. Lab and imaging reviewed. Urine is positive for meth. Given 2 g IV Rocephin. will admit for IV fluids, IV antibiotics, anti-emetics. Drew and her family agree with plan of care. Pyelonephritis -IV fluids Normal Saline 125ml/hr for hydration -IV Rocephin 2 gram every 24 hours -Medication for pain and nausea -am labs CBC, BMP Hx of drug use- denies current use -positive urine drug screen for amphetamine and methamphetamine -confirmation testing ordered -consult to social media sr strategy manager Elevated TSH -restart Synthroid 175 mg., next on Friday MAINTENANCE ISSUES -DVT Prophylaxis ambulatory -GI prophylaxis- not indicated -Otero catheter not indicated -Nutrition regular diet -Nicotine dependence Nicotine Patch at 7 mg topical daily CODE STATUS FULL ADMISSION This patient will be admitted to observation status, expect no more than one night hospital stay for evaluation and management of problems outline above. DISPOSITION anticipate discharge to home after the hospital stay PRIMARY CARE PROVIDER SUSAN Hager HOSPITALIST Dr. James
[2019-08-10] MEDS ORDERED: Morphine 2 MG/ML SYRINGE IVPUSH PRN (22:19)
[2019-08-10] MEDS ORDERED: hydrOXYzine HCl 25 MG Tab PO PRN (22:19)
[2019-08-10] MEDS ORDERED: LORazepam 2 MG/ML SDV IV PRN (22:19)
[2019-08-10] MEDS ORDERED: Albuterol 0.083% 2.5 MG/3 ML Neb Soln NEB PRN (22:19)
[2019-08-10] MEDS: Acetaminophen 325 MG Tab PO PRN (22:51)
[2019-08-10] MEDS: Nicotine 7 MG/24 Hr Patch TRDERM SCH (22:52)
[2019-08-10] MEDS: Docusate Sodium 100 MG Cap PO SCH (22:52)
[2019-08-10] MEDS: Sertraline 50 MG Tab PO SCH (22:52)
[2019-08-10] MEDS: Ibuprofen 600 MG Tab PO PRN (23:53)
[2019-08-10] MEDS: Sodium Chloride 0.9% 1,000 ML IV SCH (23:54)
[2019-08-11] MEDS: Sodium Chloride 0.9% 1,000 ML IV SCH ×3 (01:07→20:17)
[2019-08-11] MEDS ORDERED: Non-Formulary Medication 1 Each (Levothyroxine [Levothyroxine] 175 MCG) PO SCH (07:30)
[2019-08-11] MEDS ORDERED: FLU Vacc QS2019-20(6MOS+)/PF 60 MCG/0.5 ML SYRINGE IM ONE (10:00)
[2019-08-11] MEDS: Sertraline 50 MG Tab PO SCH (10:13)
[2019-08-11] MEDS: lamoTRIgine 25 MG Tab PO SCH (10:14)
[2019-08-11] MEDS: Levothyroxine 100 MCG Tab PO SCH (10:15)
[2019-08-11] MEDS: Levothyroxine 25 MCG Tab PO SCH (10:15)
[2019-08-11] MEDS: Docusate Sodium 100 MG Cap PO SCH ×2 (10:15→20:05)
[2019-08-11] MEDS: Nicotine 7 MG/24 Hr Patch TRDERM SCH (10:16)
[2019-08-11] MEDS: Ondansetron 4 MG Tab.DIS PO PRN ×2 (10:26→20:05)
[2019-08-11] MEDS: oxyCODONE 5 MG Tab PO PRN ×2 (10:28→20:05)
--- NOTE | 2019-08-11 13:27 | PCM.PN ---
- General Info Date of Service: 08/11/19 Subjective Update: Patient did have a fever last night after admission but otherwise there were no acute issues. She has had nausea this morning and did have an emesis. Creatinine is slightly higher today. Still complaining of a fair amount of flank pain as well as pain into her back that radiates down into the legs. She is complaining of muscle aches and muscle cramps, mostly in her legs. No complaints of shortness of breath. Functional Status: Reports: Pain Controlled. Denies: Tolerating Diet - Review of Systems General: Reports: Fever Gastrointestinal: Reports: Abdominal Pain, Nausea, Vomiting - Patient Data Vitals - Most Recent: Last Vital Signs Temp 37.4 C 08/11/19 11:00 Pulse 97 08/11/19 11:00 Resp 20 08/11/19 11:00 BP 100/63 08/11/19 11:00 Pulse Ox 96 08/11/19 13:00 Weight - Most Recent: 67.222 kg I&O - Last 24 Hours: Intake & Output 08/10/19 08/11/19 08/11/19 22:59 06:59 14:59 Intake Total 300 1140 Output Total 500 Balance 300 640 Lab Results Last 24 Hours: Laboratory Results - last 24 hr 08/10/19 08/10/19 08/10/19 Range/Units 18:39 18:39 18:39 WBC 10.2 (4.5-11.0) K/uL RBC 4.33 (3.30-5.50) M/uL Hgb 12.5 D (12.0-15.0) g/dL Hct 38.8 (36.0-48.0) % MCV 90 (80-98) fL MCH 29 (27-31) pg MCHC 32 (32-36) % Plt Count 184 (150-400) K/uL Neut % (Auto) 83 H (36-66) % Lymph % (Auto) 7 L (24-44) % [place] % (Auto) 10 H (2-6) % Eos % (Auto) 1 L (2-4) % Baso % (Auto) 0 (0-1) % Sodium 134 L (140-148) mmol/L Potassium 3.7 (3.6-5.2) mmol/L Chloride 96 L (100-108) mmol/L Carbon Dioxide 27 (21-32) mmol/L Anion Gap 14.7 H (5.0-14.0) mmol/L BUN 8 D (7-18) mg/dL Creatinine 1.0 (0.6-1.0) mg/dL Est Cr Clr Drug Dosing 77.08 mL/min Estimated GFR (MDRD) > 60 (>60) Glucose 97 (74-106) mg/dL Lactic Acid 1.2 (0.4-2.0) mmol/L Calcium 8.8 (8.5-10.1) mg/dL Total Bilirubin 1.2 H D (0.2-1.0) mg/dL AST 51 H D (15-37) U/L ALT 55 D (12-78) U/L Alkaline Phosphatase 100 D (46-116) U/L C-Reactive Protein 23.89 H (0.0-0.3) mg/dL Total Protein 7.4 (6.4-8.2) g/dL Albumin 3.1 L (3.4-5.0) g/dL Globulin 4.3 H (2.3-3.5) g/dL Albumin/Globulin Ratio 0.7 L (1.2-2.2) Lipase 50 L (73-393) U/L Free T4 0.91 (0.76-1.46) ng/dL TSH, Ultra Sensitive 31.294 H (0.358-3.740) uIU/mL Urine Color (YELLOW) Urine Appearance (CLEAR) Urine pH (5.0-8.0) Ur Specific [place] (1.008-1.030) Urine Protein (NEGATIVE) mg/dL Urine Glucose (UA) (NEGATIVE) mg/dL Urine Ketones (NEGATIVE) mg/dL Urine Occult Blood (NEGATIVE) Urine Nitrite (NEGATIVE) Urine Bilirubin (NEGATIVE) Urine Urobilinogen (0.2-1.0) EU/dL Ur Leukocyte Esterase (NEGATIVE) Urine RBC (0-5) Urine WBC (0-5) Ur Epithelial Cells Amorphous Sediment Urine Bacteria Urine Mucus Urine HCG, Qual Urine Opiates Screen (NEGATIVE) Ur Oxycodone Screen (NEGATIVE) Urine Methadone Screen (NEGATIVE) Ur Propoxyphene Screen (NEGATIVE) Ur Barbiturates Screen (NEGATIVE) Ur Tricyclics Screen (NEGATIVE) Ur Phencyclidine Scrn (NEGATIVE) Ur Amphetamine Screen (NEGATIVE) U Methamphetamines Scrn (NEGATIVE) Urine MDMA Screen (NEGATIVE) U Benzodiazepines Scrn (NEGATIVE) U Cocaine Metab Screen (NEGATIVE) U Marijuana (THC) Screen (NEGATIVE) 08/10/19 08/10/19 08/10/19 Range/Units 18:42 18:42 19:38 WBC (4.5-11.0) K/uL RBC (3.30-5.50) M/uL Hgb (12.0-15.0) g/dL Hct (36.0-48.0) % MCV (80-98) fL MCH (27-31) pg MCHC (32-36) % Plt Count (150-400) K/uL Neut % (Auto) (36-66) % Lymph % (Auto) (24-44) % [place] % (Auto) (2-6) % Eos % (Auto) (2-4) % Baso % (Auto) (0-1) % Sodium (140-148) mmol/L Potassium (3.6-5.2) mmol/L Chloride (100-108) mmol/L Carbon Dioxide (21-32) mmol/L Anion Gap (5.0-14.0) mmol/L BUN (7-18) mg/dL Creatinine (0.6-1.0) mg/dL Est Cr Clr Drug Dosing mL/min Estimated GFR (MDRD) (>60) Glucose (74-106) mg/dL Lactic Acid (0.4-2.0) mmol/L Calcium (8.5-10.1) mg/dL Total Bilirubin (0.2-1.0) mg/dL AST (15-37) U/L ALT (12-78) U/L Alkaline Phosphatase (46-116) U/L C-Reactive Protein (0.0-0.3) mg/dL Total Protein (6.4-8.2) g/dL Albumin (3.4-5.0) g/dL Globulin (2.3-3.5) g/dL Albumin/Globulin Ratio (1.2-2.2) Lipase (73-393) U/L Free T4 (0.76-1.46) ng/dL TSH, Ultra Sensitive (0.358-3.740) uIU/mL Urine Color Yellow (YELLOW) Urine Appearance Cloudy A (CLEAR) Urine pH 6.5 (5.0-8.0) Ur Specific [place] 1.010 (1.008-1.030) Urine Protein Trace H (NEGATIVE) mg/dL Urine Glucose (UA) Negative (NEGATIVE) mg/dL Urine Ketones Negative (NEGATIVE) mg/dL Urine Occult Blood Small H (NEGATIVE) Urine Nitrite Positive H (NEGATIVE) Urine Bilirubin Negative (NEGATIVE) Urine Urobilinogen 0.2 (0.2-1.0) EU/dL Ur Leukocyte Esterase Small H (NEGATIVE) Urine RBC 0-5 (0-5) Urine WBC Packed H (0-5) Ur Epithelial Cells Few Amorphous Sediment Not seen Urine Bacteria Many Urine Mucus Not seen Urine HCG, Qual Negative Urine Opiates Screen Negative (NEGATIVE) Ur Oxycodone Screen Negative (NEGATIVE) Urine Methadone Screen Negative (NEGATIVE) Ur Propoxyphene Screen Negative (NEGATIVE) Ur Barbiturates Screen Negative (NEGATIVE) Ur Tricyclics Screen Negative (NEGATIVE) Ur Phencyclidine Scrn Negative (NEGATIVE) Ur Amphetamine Screen Presumptive positive H (NEGATIVE) U Methamphetamines Scrn Presumptive positive H (NEGATIVE) Urine MDMA Screen Negative (NEGATIVE) U Benzodiazepines Scrn Negative (NEGATIVE) U Cocaine Metab Screen Negative (NEGATIVE) U Marijuana (THC) Screen Negative (NEGATIVE) 08/11/19 08/11/19 Range/Units 04:00 04:00 WBC 11.1 H (4.5-11.0) K/uL RBC 3.90 (3.30-5.50) M/uL Hgb 11.2 L (12.0-15.0) g/dL Hct 35.3 L (36.0-48.0) % MCV 91 (80-98) fL MCH 29 (27-31) pg MCHC 32 (32-36) % Plt Count 168 (150-400) K/uL Neut % (Auto) 84 H (36-66) % Lymph % (Auto) 5 L (24-44) % [place] % (Auto) 10 H (2-6) % Eos % (Auto) 0 L (2-4) % Baso % (Auto) 0 (0-1) % Sodium 134 L (140-148) mmol/L Potassium 3.6 (3.6-5.2) mmol/L Chloride 99 L (100-108) mmol/L Carbon Dioxide 25 (21-32) mmol/L Anion Gap 13.6 (5.0-14.0) mmol/L BUN 9 (7-18) mg/dL Creatinine 1.2 H (0.6-1.0) mg/dL Est Cr Clr Drug Dosing 64.24 mL/min Estimated GFR (MDRD) 51 L (>60) Glucose 110 H (74-106) mg/dL Lactic Acid (0.4-2.0) mmol/L Calcium 8.0 L (8.5-10.1) mg/dL Total Bilirubin (0.2-1.0) mg/dL AST (15-37) U/L ALT (12-78) U/L Alkaline Phosphatase (46-116) U/L C-Reactive Protein (0.0-0.3) mg/dL Total Protein (6.4-8.2) g/dL Albumin (3.4-5.0) g/dL Globulin (2.3-3.5) g/dL Albumin/Globulin Ratio (1.2-2.2) Lipase (73-393) U/L Free T4 (0.76-1.46) ng/dL TSH, Ultra Sensitive (0.358-3.740) uIU/mL Urine Color (YELLOW) Urine Appearance (CLEAR) Urine pH (5.0-8.0) Ur Specific [place] (1.008-1.030) Urine Protein (NEGATIVE) mg/dL Urine Glucose (UA) (NEGATIVE) mg/dL Urine Ketones (NEGATIVE) mg/dL Urine Occult Blood (NEGATIVE) Urine Nitrite (NEGATIVE) Urine Bilirubin (NEGATIVE) Urine Urobilinogen (0.2-1.0) EU/dL Ur Leukocyte Esterase (NEGATIVE) Urine RBC (0-5) Urine WBC (0-5) Ur Epithelial Cells Amorphous Sediment Urine Bacteria Urine Mucus Urine HCG, Qual Urine Opiates Screen (NEGATIVE) Ur Oxycodone Screen (NEGATIVE) Urine Methadone Screen (NEGATIVE) Ur Propoxyphene Screen (NEGATIVE) Ur Barbiturates Screen (NEGATIVE) Ur Tricyclics Screen (NEGATIVE) Ur Phencyclidine Scrn (NEGATIVE) Ur Amphetamine Screen (NEGATIVE) U Methamphetamines Scrn (NEGATIVE) Urine MDMA Screen (NEGATIVE) U Benzodiazepines Scrn (NEGATIVE) U Cocaine Metab Screen (NEGATIVE) U Marijuana (THC) Screen (NEGATIVE) Med Orders - Current: Current Medications Acetaminophen (Tylenol) 650 mg PO Q4H PRN PRN Reason: Pain (Mild 1-3)/fever Last Admin: 08/10/19 22:51 Dose: 650 mg Albuterol (Proventil Neb Soln) 2.5 mg NEB Q4H PRN PRN Reason: Shortness Of Breath/wheezing Docusate Sodium (Colace) 100 mg PO BID [facility] Last Admin: 08/11/19 10:15 Dose: 100 mg Hydroxyzine HCl (Atarax) 25 mg PO QID PRN PRN Reason: Anxiety Ceftriaxone Sodium 2 gm/ (Sodium Chloride) 50 mls @ 100 mls/hr IV Q24H [facility] Sodium Chloride (Normal Saline) 1,000 mls @ 125 mls/hr IV ASDIRECTED [facility] Last Admin: 08/11/19 12:40 Dose: 125 mls/hr Ibuprofen (Motrin) 600 mg PO Q6H PRN PRN Reason: Pain/Fever Last Admin: 08/10/19 23:53 Dose: 600 mg Lamotrigine (Lamotrigine) 25 mg PO DAILY [facility] Last Admin: 08/11/19 10:14 Dose: 25 mg Levothyroxine Sodium (Synthroid) 100 mcg PO ACBREAKFAST [facility] Last Admin: 08/11/19 10:15 Dose: 100 mcg Levothyroxine Sodium (Levothyroxine) 75 mcg PO ACBREAKFAST [facility] Last Admin: 08/11/19 10:15 Dose: 75 mcg Lorazepam (Ativan) 1 mg IV Q6H PRN PRN Reason: Nausea/Vomiting Last Admin: 08/11/19 01:05 Dose: 1 mg Melatonin (Melatonin) 6 mg PO BEDTIME [facility] Morphine Sulfate (Morphine) 2 mg IVPUSH Q2H PRN PRN Reason: Pain (severe 7-10) Nicotine (Habitrol) 7 mg TRDERM DAILY [facility] Last Admin: 08/11/19 10:16 Dose: 7 mg Ondansetron HCl (Zofran Odt) 4 mg PO Q6H PRN PRN Reason: Nausea able to take PO Last Admin: 08/11/19 10:26 Dose: 4 mg Oxycodone HCl (Oxycodone) 5 mg PO Q4H PRN PRN Reason: Pain (moderate 4-6) Last Admin: 08/11/19 10:28 Dose: 5 mg Sertraline HCl (Zoloft) 150 mg PO DAILY [facility] Last Admin: 08/11/19 10:13 Dose: 150 mg Sodium Chloride (Saline Flush) 10 ml FLUSH ASDIRECTED PRN PRN Reason: Keep Vein Open Last Admin: 08/10/19 20:12 Dose: 10 ml Discontinued Medications Sodium Chloride (Normal Saline) 1,000 mls @ 999 mls/hr IV .BOLUS STA Stop: 08/10/19 20:34 Last Admin: 08/10/19 20:08 Dose: 999 mls/hr Sodium Chloride (Normal Saline) 80 mls @ 3 mls/sec IV ASDIRECTED [facility] Last Admin: 08/10/19 20:12 Dose: 3 mls/sec Ceftriaxone Sodium 2 gm/ (Sodium Chloride) 50 mls @ 100 mls/hr IV ONETIME ONE Stop: 08/10/19 21:08 Last Admin: 08/10/19 20:55 Dose: 100 mls/hr Influenza Virus Vaccine (Pharmacy To Dose - Influenza Vaccine) 1 each IM ONETIME ONE Stop: 08/11/19 10:01 Influenza Virus Vaccine (Fluzone Quad [id number] Syringe) 60 mcg IM .ONCE ONE Stop: 08/11/19 10:01 Iopamidol (Isovue-300 (61%)) 100 ml IV . DIRECTED [facility] Last Admin: 08/10/19 20:12 Dose: 100 ml Morphine Sulfate (Morphine) 4 mg IVPUSH ONETIME ONE Stop: 08/10/19 19:36 Last Admin: 08/10/19 19:58 Dose: 4 mg Ondansetron HCl (Zofran) 4 mg IVPUSH ONETIME ONE Stop: 08/10/19 19:36 Last Admin: 08/10/19 19:54 Dose: 4 mg - Exam Quality Assessment: No: Supplemental Oxygen General: Alert, Oriented, Cooperative, No Acute Distress Lungs: Normal Respiratory Effort. No: Wheezing Cardiovascular: Regular Rate, Regular Rhythm GI/Abdominal Exam: Soft, No Distention Extremities: No Pedal Edema. No: Increased Warmth Skin: Warm, Dry Psy/Mental Status: Alert, Normal Affect Sepsis Event Note - Evaluation Sepsis Screening Result: No Definite Risk - Focused Exam Vital Signs: Vital Signs Temp Pulse Resp BP Pulse Ox 08/11/19 13:00 96 08/11/19 11:00 37.4 C 97 20 100/63 100 08/11/19 07:40 96 08/11/19 07:00 36.6 C 81 16 91/76 97 08/11/19 02:34 36.2 C 88 18 95/73 96 08/11/19 01:47 94 L Date Exam was Performed: 08/11/19 Time Exam was Performed: 14:04 - Problem List Review Problem List Initiated/Reviewed/Updated: Yes - My Orders Last 24 Hours: My Active Orders 08/11/19 13:24 Admission Status [Patient Status] [ADT] Routine 08/11/19 13:25 Antiembolic Devices [RC] .Routine SCD [Sequential Compression Device] [OM.PC] Routine 08/11/19 13:30 Potassium Chloride 20 MEQ,Lidocaine 1% 2 ML IN 100ML NS @ 50 MLS/HR Potassium Chloride 20 meq Lidocaine 1% [Xylocaine 1%] 2 ml Sodium Chloride 0.9% [Normal Saline] 100 ml IV Q2H 08/12/19 05:00 BASIC METABOLIC PANEL,BMP [CHEM] Timed CBC W/O DIFF,HEMOGRAM [HEME] Timed (1) - Plan Plan:: ASSESSMENT AND PLAN: Right pyelonephritis-increasing creatinine since admission, still having nausea and vomiting as well as a fair amount of pain. Urine culture is pending at this time. -Continue IV fluids -Continue ceftriaxone -Pain control -Follow-up urine culture Hx of drug abuse- denies current use but positive urine drug screen for amphetamine and methamphetamine -confirmation testing ordered Elevated TSH-patient has not been taking her medications. -Continue levothyroxine -Outpatient follow-up of TSH in several weeks Tobacco dependence-encourage cessation -Nicotine patch MAINTENANCE ISSUES -DVT Prophylaxis ambulatory -GI prophylaxis- not indicated -Otero catheter not indicated -Nutrition regular diet ADMISSION Drew was initially admitted to observation status but with rising creatinine, nausea with vomiting and significant pain she will transition to inpatient status for further management of her pyelonephritis. DISPOSITION anticipate discharge to home after the hospital stay Jesus James MD
[2019-08-11] MEDS: Potassium Chloride 20 MEQ, Lidocaine 1% 2 ML in Sodium Chloride 0.9% 100 ML IV SCH ×2 (15:10→17:19)
[2019-08-11] MEDS: Ibuprofen 600 MG Tab PO PRN (18:07)
[2019-08-11] MEDS: Melatonin 3 MG Tab PO SCH (20:05)
[2019-08-11] MEDS: cefTRIAXone 2 GM in Sodium Chloride 0.9% 50 ML IV SCH (20:06)
[2019-08-12] MEDS: oxyCODONE 5 MG Tab PO PRN ×2 (00:05→08:30)
[2019-08-12] MEDS: Sodium Chloride 0.9% 1,000 ML IV SCH ×2 (04:51→13:20)
[2019-08-12] MEDS: Levothyroxine 25 MCG Tab PO SCH (07:52)
[2019-08-12] MEDS: Levothyroxine 100 MCG Tab PO SCH (07:52)
[2019-08-12] MEDS: Ondansetron 4 MG Tab.DIS PO PRN ×2 (08:30→16:41)
[2019-08-12] MEDS: Docusate Sodium 100 MG Cap PO SCH ×2 (08:32→20:22)
[2019-08-12] MEDS: Nicotine 7 MG/24 Hr Patch TRDERM SCH (08:32)
[2019-08-12] MEDS: Sertraline 50 MG Tab PO SCH (08:33)
[2019-08-12] MEDS: lamoTRIgine 25 MG Tab PO SCH (08:33)
[2019-08-12] MEDS ORDERED: FLU Vacc QS2019-20(6MOS+)/PF 60 MCG/0.5 ML SYRINGE IM ONE (10:00)
--- NOTE | 2019-08-12 10:04 | PCM.PN ---
- General Info Date of Service: 08/12/19 Subjective Update: No acute events overnight. She still has mild nausea but this is getting better and she was able to keep breakfast down though intake was not great. She did have a low-grade fever overnight. Still having right flank pain with radiation to the right lower pelvis but this is a little better today. No diarrhea. No shortness of breath. Functional Status: Reports: Pain Controlled - Review of Systems General: Reports: Fever Gastrointestinal: Reports: Nausea - Patient Data Vitals - Most Recent: Last Vital Signs Temp 36.8 C 08/12/19 07:36 Pulse 78 08/12/19 07:36 Resp 14 08/12/19 07:36 BP 95/61 08/12/19 07:36 Pulse Ox 95 08/12/19 07:36 Weight - Most Recent: 68.855 kg I&O - Last 24 Hours: Intake & Output 08/11/19 08/12/19 08/12/19 22:59 06:59 14:59 Intake Total 1845 1870 Output Total 750 600 Balance 1095 1270 Lab Results Last 24 Hours: Laboratory Results - last 24 hr 08/12/19 08/12/19 Range/Units 06:07 06:07 WBC 6.0 (4.5-11.0) K/uL RBC 3.49 (3.30-5.50) M/uL Hgb 9.9 L (12.0-15.0) g/dL Hct 32.2 L (36.0-48.0) % MCV 92 (80-98) fL MCH 28 (27-31) pg MCHC 31 L (32-36) % Plt Count 160 (150-400) K/uL Sodium 134 L (140-148) mmol/L Potassium 4.6 (3.6-5.2) mmol/L Chloride 103 (100-108) mmol/L Carbon Dioxide 26 (21-32) mmol/L Anion Gap 9.6 (5.0-14.0) mmol/L BUN 9 (7-18) mg/dL Creatinine 1.0 (0.6-1.0) mg/dL Est Cr Clr Drug Dosing 76.88 mL/min Estimated GFR (MDRD) > 60 (>60) Glucose 87 (74-106) mg/dL Calcium 7.8 L (8.5-10.1) mg/dL Med Orders - Current: Current Medications Acetaminophen (Tylenol) 650 mg PO Q4H PRN PRN Reason: Pain (Mild 1-3)/fever Last Admin: 08/10/19 22:51 Dose: 650 mg Albuterol (Proventil Neb Soln) 2.5 mg NEB Q4H PRN PRN Reason: Shortness Of Breath/wheezing Docusate Sodium (Colace) 100 mg PO BID [facility] Last Admin: 08/12/19 08:32 Dose: 100 mg Hydroxyzine HCl (Atarax) 25 mg PO QID PRN PRN Reason: Anxiety Ceftriaxone Sodium 2 gm/ (Sodium Chloride) 50 mls @ 100 mls/hr IV Q24H [facility] Last Admin: 08/11/19 20:06 Dose: 100 mls/hr Sodium Chloride (Normal Saline) 1,000 mls @ 75 mls/hr IV ASDIRECTED [facility] Ibuprofen (Motrin) 600 mg PO Q6H PRN PRN Reason: Pain/Fever Last Admin: 08/11/19 18:07 Dose: 600 mg Lamotrigine (Lamotrigine) 25 mg PO DAILY [facility] Last Admin: 08/12/19 08:33 Dose: 25 mg Levothyroxine Sodium (Synthroid) 100 mcg PO ACBREAKFAST [facility] Last Admin: 08/12/19 07:52 Dose: 100 mcg Levothyroxine Sodium (Levothyroxine) 75 mcg PO ACBREAKFAST [facility] Last Admin: 08/12/19 07:52 Dose: 75 mcg Lorazepam (Ativan) 1 mg IV Q6H PRN PRN Reason: Nausea/Vomiting Last Admin: 08/11/19 01:05 Dose: 1 mg Melatonin (Melatonin) 6 mg PO BEDTIME [facility] Last Admin: 08/11/19 20:05 Dose: 6 mg Morphine Sulfate (Morphine) 2 mg IVPUSH Q2H PRN PRN Reason: Pain (severe 7-10) Nicotine (Habitrol) 7 mg TRDERM DAILY [facility] Last Admin: 08/12/19 08:32 Dose: 7 mg Ondansetron HCl (Zofran Odt) 4 mg PO Q6H PRN PRN Reason: Nausea able to take PO Last Admin: 08/12/19 08:30 Dose: 4 mg Oxycodone HCl (Oxycodone) 5 mg PO Q4H PRN PRN Reason: Pain (moderate 4-6) Last Admin: 08/12/19 08:30 Dose: 5 mg Sertraline HCl (Zoloft) 150 mg PO DAILY [facility] Last Admin: 08/12/19 08:33 Dose: 150 mg Sodium Chloride (Saline Flush) 10 ml FLUSH ASDIRECTED PRN PRN Reason: Keep Vein Open Last Admin: 08/10/19 20:12 Dose: 10 ml Discontinued Medications Sodium Chloride (Normal Saline) 1,000 mls @ 999 mls/hr IV .BOLUS STA Stop: 08/10/19 20:34 Last Admin: 08/10/19 20:08 Dose: 999 mls/hr Sodium Chloride (Normal Saline) 80 mls @ 3 mls/sec IV ASDIRECTED [facility] Last Admin: 08/10/19 20:12 Dose: 3 mls/sec Ceftriaxone Sodium 2 gm/ (Sodium Chloride) 50 mls @ 100 mls/hr IV ONETIME ONE Stop: 08/10/19 21:08 Last Admin: 08/10/19 20:55 Dose: 100 mls/hr Sodium Chloride (Normal Saline) 1,000 mls @ 125 mls/hr IV ASDIRECTED [facility] Last Admin: 08/12/19 04:51 Dose: 125 mls/hr Potassium Chloride 20 meq/Lidocaine HCl 2 ml/ Sodium Chloride 112 mls @ 56 mls/ hr IV Q2H [facility] Stop: 08/11/19 18:29 Last Admin: 08/11/19 17:19 Dose: 56 mls/hr Influenza Virus Vaccine (Pharmacy To Dose - Influenza Vaccine) 1 each IM ONETIME ONE Stop: 08/11/19 10:01 Influenza Virus Vaccine (Fluzone Quad Syringe) 60 mcg IM .ONCE ONE Stop: 08/11/19 10:01 Last Admin: 08/11/19 20:51 Dose: Not Given Influenza Virus Vaccine (Fluzone Quad Syringe) 60 mcg IM .ONCE ONE Stop: 08/12/19 10:01 Iopamidol (Isovue-300 (61%)) 100 ml IV . DIRECTED [facility] Last Admin: 08/10/19 20:12 Dose: 100 ml Morphine Sulfate (Morphine) 4 mg IVPUSH ONETIME ONE Stop: 08/10/19 19:36 Last Admin: 08/10/19 19:58 Dose: 4 mg Ondansetron HCl (Zofran) 4 mg IVPUSH ONETIME ONE Stop: 08/10/19 19:36 Last Admin: 08/10/19 19:54 Dose: 4 mg - Exam Quality Assessment: No: Supplemental Oxygen General: Alert, Oriented, Cooperative, No Acute Distress Lungs: Normal Respiratory Effort Cardiovascular: Regular Rate, Regular Rhythm GI/Abdominal Exam: Soft, No Distention Extremities: No Pedal Edema Psy/Mental Status: Alert, Normal Affect Sepsis Event Note - Evaluation Sepsis Screening Result: No Definite Risk - Focused Exam Vital Signs: Vital Signs Temp Pulse Resp BP Pulse Ox Pulse Ox 08/12/19 07:36 36.8 C 78 14 95/61 95 08/12/19 04:00 36.3 C 73 16 95/60 96 08/12/19 00:00 36.2 C 70 16 91/58 L 95 08/11/19 22:19 98 Date Exam was Performed: 08/12/19 Time Exam was Performed: 14:30 - Problem List Review Problem List Initiated/Reviewed/Updated: Yes - My Orders Last 24 Hours: My Active Orders 08/11/19 13:24 Admission Status [Patient Status] [ADT] Routine 08/11/19 13:25 Antiembolic Devices [RC] .Routine SCD [Sequential Compression Device] [OM.PC] Routine 08/12/19 10:10 Sodium Chloride 0.9% [Normal Saline] 1,000 ml IV ASDIRECTED - Plan Plan:: ASSESSMENT AND PLAN: Right pyelonephritis-kidney function and urine output have been better with extra fluids. Clinically she is slowly getting better and pain is decreasing but oral intake is still not great with persistent nausea. Unfortunately no urine culture was set up at the time of admission. -Continue IV fluids -Continue ceftriaxone -Pain control -nausea control Hx of drug abuse- denies current use but positive urine drug screen for amphetamine and methamphetamine -confirmation testing ordered Elevated TSH-patient has not been taking her medications. -Continue levothyroxine -Outpatient follow-up of TSH in several weeks Tobacco dependence-encourage cessation -Nicotine patch MAINTENANCE ISSUES -DVT Prophylaxis ambulatory -GI prophylaxis- not indicated -Otero catheter not indicated -Nutrition regular diet DISPOSITION anticipate discharge to home after the hospital stay Jesus James MD
[2019-08-12] MEDS: Ibuprofen 600 MG Tab PO PRN (16:40)
[2019-08-12] MEDS: Melatonin 3 MG Tab PO SCH (20:22)
[2019-08-12] MEDS: cefTRIAXone 2 GM in Sodium Chloride 0.9% 50 ML IV SCH (20:22)
[2019-08-13] MEDS: Sodium Chloride 0.9% 1,000 ML IV SCH (03:36)
[2019-08-13] MEDS: Ibuprofen 600 MG Tab PO PRN ×2 (03:43→09:15)
[2019-08-13] MEDS: Acetaminophen 325 MG Tab PO PRN (05:48)
[2019-08-13] MEDS: Sertraline 50 MG Tab PO SCH (09:07)
[2019-08-13] MEDS: Docusate Sodium 100 MG Cap PO SCH (09:07)
[2019-08-13] MEDS: lamoTRIgine 25 MG Tab PO SCH (09:07)
[2019-08-13] MEDS: Nicotine 7 MG/24 Hr Patch TRDERM SCH (09:08)
[2019-08-13] MEDS: Levothyroxine 25 MCG Tab PO SCH (09:08)
[2019-08-13] MEDS: Levothyroxine 100 MCG Tab PO SCH (09:08)
--- NOTE | 2019-08-13 10:43 | PCM.DCSUM1 ---
Discharge Summary - Hospital Course Brief History: 34-year-old female with history of depression with anxiety, hypothyroidism who presented with several days of progressive abdominal pain. She was admitted for management of right-sided pyelonephritis with acute kidney injury. Diagnosis: Stroke: No - Discharge Data Discharge Date: 08/13/19 Discharge Disposition: Home, Self-Care 01 Condition: Good - Referral to Home Health Primary Care Physician: PCP None - Discharge Diagnosis/Problem(s) (1) Pyelonephritis SNOMED Code(s): 75263751 ICD Code: N12 - TUBULO-INTERSTITIAL NEPHRITIS, NOT SPCF ACUTE OR CHRONIC Status: Acute Current Visit: Yes (2) Acute kidney injury SNOMED Code(s): 15700210, 85201420 ICD Code: N17.9 - ACUTE KIDNEY FAILURE, UNSPECIFIED Status: Acute Current Visit: Yes (3) Elevated TSH SNOMED Code(s): 785721302 ICD Code: R79.89 - OTHER SPECIFIED ABNORMAL FINDINGS OF BLOOD CHEMISTRY Status: Acute Current Visit: Yes (4) Methamphetamine abuse SNOMED Code(s): 912699476 ICD Code: F15.10 - OTHER STIMULANT ABUSE, UNCOMPLICATED Status: Suspected Current Visit: Yes - Patient Summary/Data Labs Pending at D/C: Confirmatory test for methamphetamine Hospital Course: Drew presented to the emergency room with abdominal pain, nausea, vomiting and fever. Work-up in the emergency room was suggestive of right-sided pyelonephritis with ureteritis and cystitis as well. With her progressive symptoms as well as nausea with vomiting she was not thought to be safe for outpatient management. She was started on ceftriaxone as well as IV fluids and symptomatic management before admission to the hospital. Her urine drug screen in the emergency room was positive for methamphetamine but the patient denied having recently used methamphetamine. Confirmatory tests were sent but are pending at the time of discharge. Over the next several days we had slow but steady improvement. Her nausea improved and then resolved. Abdominal pain has been slowly improving. She has been tolerating regular diet with soft and bland foods. Her fevers have resolved. She did tolerate antibiotics. Unfortunately a urine culture was not set up at the time of presentation and this was not caught until 36 hours after admission so we do not have a urine culture to help guide antibiotic therapy. I am going to transition her to ciprofloxacin for the outpatient management. She is eating well and strength is improving so I believe she is safe for outpatient management at this time. She will need antibiotics for another week after hospital discharge. She does have a few pain pills for severe pain but will be utilizing ibuprofen and acetaminophen for mild to moderate pain. She has follow-up scheduled for next week. Also of note during the hospital stay was a very elevated TSH at 31. The patient does report that she has not been taking good care of herself and has not been taking her thyroid supplement. We did restart her thyroid supplement but she may benefit from a recheck about [address] if she consistently takes her medication. - Patient Instructions Diet: Regular Diet as Tolerated (Soft, bland and boring foods for the next several days) Activity: As Tolerated Driving: Do Not Drive (If taking pain pills) Showering/Bathing: May Shower Notify Provider of: Fever, Increased Pain, Nausea and/or Vomiting Other/Special Instructions: 1. You were in the hospital for management of pyelonephritis. Your condition has been improving with antibiotic therapy. I recommend ongoing antibiotic therapy with ciprofloxacin. You should take 500 mg twice daily. Your next dose outside of the hospital will be due around 9 PM tonight. You should alternate acetaminophen 650 mg every four hours and ibuprofen 600 mg every six hours for mild pain. I did provide a limited prescription for oxycodone for moderate or severe pain. 2. Drink plenty of fluids with a goal of keeping your urine clear or light yellow. - Discharge Plan *PRESCRIPTION DRUG MONITORING PROGRAM REVIEWED*: Not Applicable *COPY OF PRESCRIPTION DRUG MONITORING REPORT IN PATIENT [place]: Not Applicable Prescriptions/Med Rec: Ciprofloxacin [Ciprofloxacin HCl] 500 mg PO BID #14 tab oxyCODONE 5 mg PO Q6H PRN #5 tablet PRN Reason: Pain (Moderate 4-6) Home Medications: Home Meds Levothyroxine 175 mcg PO ACBREAKFAST 08/10/17 [History] Fluticasone Propionate [Flonase] 2 spray IN ASDIRECTED PRN 07/07/18 [History] Sertraline [Zoloft] 150 mg PO DAILY 08/10/19 [History] hydrOXYzine HCL [hydrOXYzine] 1 tab PO QID PRN 08/10/19 [History] lamoTRIgine [Lamotrigine] 1 tab PO DAILY 08/10/19 [History] Ciprofloxacin [Ciprofloxacin HCl] 500 mg PO BID #14 tab 08/13/19 [Rx] oxyCODONE 5 mg PO Q6H PRN #5 tablet 08/13/19 [Rx] Oxygen Therapy Mode: Room Air Patient Handouts: Pyelonephritis, Adult, [id number], Ciprofloxacin tablets Referrals: Neisha Wisdom PA-C [Ordering Only Provider] - 08/20/19 2:30 pm - Discharge Summary/Plan Comment DC Time >30 min.: No - Patient Data Vitals - Most Recent: Last Vital Signs Temp 36.4 C 08/13/19 03:38 Pulse 66 08/13/19 03:38 Resp 16 08/13/19 03:38 BP 100/62 08/13/19 03:38 Pulse Ox 95 08/13/19 03:38 Weight - Most Recent: 68.855 kg I&O - Last 24 hours: Intake & Output 08/12/19 08/13/19 08/13/19 22:59 06:59 14:59 Intake Total 2502 851 Output Total 1350 1100 Balance 1152 -249 Med Orders - Current: Current Medications Acetaminophen (Tylenol) 650 mg PO Q4H PRN PRN Reason: Pain (Mild 1-3)/fever Last Admin: 08/13/19 05:48 Dose: 650 mg Albuterol (Proventil Neb Soln) 2.5 mg NEB Q4H PRN PRN Reason: Shortness Of Breath/wheezing Docusate Sodium (Colace) 100 mg PO BID [facility] Last Admin: 08/13/19 09:07 Dose: 100 mg Hydroxyzine HCl (Atarax) 25 mg PO QID PRN PRN Reason: Anxiety Ceftriaxone Sodium 2 gm/ (Sodium Chloride) 50 mls @ 100 mls/hr IV Q24H [facility] Last Admin: 08/12/19 20:22 Dose: 100 mls/hr Sodium Chloride (Normal Saline) 1,000 mls @ 75 mls/hr IV ASDIRECTED [facility] Last Admin: 08/13/19 03:36 Dose: 75 mls/hr Ibuprofen (Motrin) 600 mg PO Q6H PRN PRN Reason: Pain/Fever Last Admin: 08/13/19 09:15 Dose: 600 mg Lamotrigine (Lamotrigine) 25 mg PO DAILY [facility] Last Admin: 08/13/19 09:07 Dose: 25 mg Levothyroxine Sodium (Synthroid) 100 mcg PO ACBREAKFAST [facility] Last Admin: 08/13/19 09:08 Dose: 100 mcg Levothyroxine Sodium (Levothyroxine) 75 mcg PO ACBREAKFAST [facility] Last Admin: 08/13/19 09:08 Dose: 75 mcg Lorazepam (Ativan) 1 mg IV Q6H PRN PRN Reason: Nausea/Vomiting Last Admin: 08/11/19 01:05 Dose: 1 mg Melatonin (Melatonin) 6 mg PO BEDTIME [facility] Last Admin: 08/12/19 20:22 Dose: 6 mg Morphine Sulfate (Morphine) 2 mg IVPUSH Q2H PRN PRN Reason: Pain (severe 7-10) Nicotine (Habitrol) 7 mg TRDERM DAILY [facility] Last Admin: 08/13/19 09:08 Dose: Not Given Ondansetron HCl (Zofran Odt) 4 mg PO Q6H PRN PRN Reason: Nausea able to take PO Last Admin: 08/12/19 16:41 Dose: 4 mg Oxycodone HCl (Oxycodone) 5 mg PO Q4H PRN PRN Reason: Pain (moderate 4-6) Last Admin: 08/12/19 08:30 Dose: 5 mg Sertraline HCl (Zoloft) 150 mg PO DAILY [facility] Last Admin: 08/13/19 09:07 Dose: 150 mg Sodium Chloride (Saline Flush) 10 ml FLUSH ASDIRECTED PRN PRN Reason: Keep Vein Open Last Admin: 08/10/19 20:12 Dose: 10 ml Discontinued Medications Sodium Chloride (Normal Saline) 1,000 mls @ 999 mls/hr IV .BOLUS STA Stop: 08/10/19 20:34 Last Admin: 08/10/19 20:08 Dose: 999 mls/hr Sodium Chloride (Normal Saline) 80 mls @ 3 mls/sec IV ASDIRECTED [facility] Last Admin: 08/10/19 20:12 Dose: 3 mls/sec Ceftriaxone Sodium 2 gm/ (Sodium Chloride) 50 mls @ 100 mls/hr IV ONETIME ONE Stop: 08/10/19 21:08 Last Admin: 08/10/19 20:55 Dose: 100 mls/hr Sodium Chloride (Normal Saline) 1,000 mls @ 125 mls/hr IV ASDIRECTED [facility] Last Admin: 01/16/20 04:51 Dose: 125 mls/hr Potassium Chloride 20 meq/Lidocaine HCl 2 ml/ Sodium Chloride 112 mls @ 56 mls/ hr IV Q2H [facility] Stop: 08/11/19 18:29 Last Admin: 08/11/19 17:19 Dose: 56 mls/hr Influenza Virus Vaccine (Pharmacy To Dose - Influenza Vaccine) 1 each IM ONETIME ONE Stop: 08/11/19 10:01 Influenza Virus Vaccine (Fluzone Quad Syringe) 60 mcg IM .ONCE ONE Stop: 08/11/19 10:01 Last Admin: 08/11/19 20:51 Dose: Not Given Influenza Virus Vaccine (Fluzone Quad Syringe) 60 mcg IM .ONCE ONE Stop: 08/12/19 10:01 Last Admin: 08/12/19 13:23 Dose: Not Given Iopamidol (Isovue-300 (61%)) 100 ml IV . DIRECTED [facility] Last Admin: 08/10/19 20:12 Dose: 100 ml Morphine Sulfate (Morphine) 4 mg IVPUSH ONETIME ONE Stop: 08/10/19 19:36 Last Admin: 08/10/19 19:58 Dose: 4 mg Ondansetron HCl (Zofran) 4 mg IVPUSH ONETIME ONE Stop: 08/10/19 19:36 Last Admin: 08/10/19 19:54 Dose: 4 mg - Exam Quality Assessment: Denies: Supplemental Oxygen General: Reports: Alert, Oriented, Cooperative, No Acute Distress Lungs: Reports: Clear to Auscultation, Normal Respiratory Effort Cardiovascular: Reports: Regular Rate, Regular Rhythm GI/Abdominal Exam: Soft, No Distention Extremities: No Pedal Edema Psy/Mental Status: Reports: Alert, Normal Affect
== END 2019-08-13 14:50 | disposition home or self-care (01) | DRG 690 ==
LOC: JP.ED 18:15 → JP.MS 21:35 → OBSVTOIN 08-11 13:24
PROVIDERS: ADMIT Internal Medicine; ATTEND Internal Medicine
DX: N10 Acute pyelonephritis (principal); N17.9 Acute kidney failure, unspecified; N28.89 Other specified disorders of kidney and ureter; N30.90 Cystitis, unspecified without hematuria; R79.89 Other specified abnormal findings of blood chemistry; F15.10 Other stimulant abuse, uncomplicated; F41.9 Anxiety disorder, unspecified; F32.9 Major depressive disorder, single episode, unspecified; F17.200 Nicotine dependence, unspecified, uncomplicated; Z79.890 Hormone replacement therapy
CPT/HCPCS: 36415; 74177; 80048; 80053; 80305-QW; 80307; 81001; 81025; 83605; 83690; 84439; 84443; 85025; 85027; 86140; 94762; 96361; 96365; 96375; 99285-25; A9270-GY; G0378; J0696; J2001; J2060; J2270; J2405; J3480; J7030; J7050; Q9967

== ENCOUNTER 2019-09-09 13:28 | Emergency (ER) | payer MEDICAID ==
[2019-09-09] MEDS ORDERED: LORazepam 2 MG/ML SDV IM ONE ×2 (13:29→14:24)
--- NOTE | 2019-09-09 13:39 | EDM.PDOC ---
<Josh Cardona G - Last Filed: 09/09/19 18:59> ED HPI GENERAL MEDICAL PROBLEM - General Chief Complaint: Respiratory Problem Stated Complaint: ALLERGIC REATION- SOB Time Seen by Provider: 09/09/19 13:30 Source of Information: Reports: Patient, Old Records History Limitations: Reports: No Limitations - History of Present Illness INITIAL COMMENTS - FREE TEXT/NARRATIVE: 34 yo female presents stating that she is having difficulty breathing and is having trouble actually speaking. Doesn't think she can swallow. Denies a hx of the same. Does have a pHx of methamphetamine use. Denies itching. Onset: Today Onset Date: 09/09/19 Duration: Minutes: Location: Reports: Neck, Chest Quality: Reports: Other (tightness) Severity: Severe Improves with: Reports: None Worsens with: Reports: Other (unknown) Context: Reports: Other (See HPI, suspect recent meth use) Associated Symptoms: Reports: Shortness of Breath. Denies: Chest Pain, Fever/ Chills, Nausea/Vomiting, Rash Treatments WEDDING DECORATOR: Reports: Other (see below) (none) Anterior Chest Pain Score (Numeric/FACES): 5 - Related Data Allergies Allergy/AdvReac Type Severity Reaction Status Date / Time No Known Allergies Allergy Verified 09/09/19 13:47 Home Meds: Home Meds Levothyroxine 175 mcg PO ACBREAKFAST 08/10/17 [History] Fluticasone Propionate [Flonase] 2 spray IN ASDIRECTED PRN 07/07/18 [History] Sertraline [Zoloft] 150 mg PO DAILY 08/10/19 [History] hydrOXYzine HCL [hydrOXYzine] 1 tab PO QID PRN 08/10/19 [History] lamoTRIgine [Lamotrigine] 1 tab PO DAILY 08/10/19 [History] Past Medical History - Past Health History Medical/Surgical History: Denies Medical/Surgical History HEENT History: Reports: None Respiratory History: Reports: None Other Respiratory History: pneumonia 2014 Genitourinary History: Reports: Pyelonephritis, UTI, Recurrent 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 SPECIALIST History: Reports: Neurological History: Reports: Head Trauma, Migraines Psychiatric History: Reports: Anxiety, Depression, PTSD Endocrine/Metabolic History: Reports: Hyperthyroidism, Other (See Below) Other Endocrine/Metabolic History: graves disease - Infectious Disease History Infectious Disease History: Reports: Chicken Pox, Pertussis (Whooping Cough), Shingles - Past Surgical History Head Surgeries/Procedures: Reports: None HEENT Surgical History: Reports: Adenoidectomy, Tonsillectomy Cardiovascular Surgical History: Reports: None Female Surgical History: Reports: Section, Tubal Ligation Endocrine Surgical History: Reports: None Neurological Surgical History: Reports: None Musculoskeletal Surgical History: Reports: None Social & Family History - Family History Family Medical History: Noncontributory - Caffeine Use Caffeine Use: Reports: Soda - Living Situation & Occupation Living situation: Reports: Single Occupation: Employed (lives with her 4 children age 4 yr to 16 yrs. 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 Denies: Wheezing, Pleuritic Chest Pain, Cough, Sputum, Hemoptysis Cardiovascular: Reports: No Symptoms GI/Abdominal: Reports: No Symptoms : Reports: No Symptoms Musculoskeletal: Reports: No Symptoms Skin: Reports: No Symptoms Neurological: Reports: No Symptoms ED EXAM GENERAL NO PERIP PULSE - Physical Exam Exam: See Below Exam Limited By: No Limitations General Appearance: Alert, WD/WN, No Apparent Distress Eye Exam: Bilateral Eye: PERRL Ears: Normal External Exam, Normal Canal, Hearing Grossly Normal Nose: Normal Inspection, No Blood Throat/Mouth: Normal Inspection, Normal Lips, Normal Oropharynx, Normal Voice, No Airway Compromise, Other (no swelling visualized). No: Normal Teeth ( [id number]) Head: Atraumatic, Normocephalic Neck: Normal Inspection Respiratory/Chest: No Respiratory Distress, Lungs Clear, Normal Breath Sounds, No Accessory Muscle Use, Other (hyperventilating) Cardiovascular: Regular Rate, Rhythm, No Edema GI/Abdominal: Normal Bowel Sounds, Soft, Non-Tender, No Distention Back Exam: Normal Inspection. No: CVA Tenderness (R), CVA Tenderness (L) Neurological: Alert, Oriented, CN II-XII Intact, Normal Cognition, No Motor/ Sensory Deficits Psychiatric: Normal Affect, Normal Mood Skin Exam: Warm, Dry, Intact, Normal Color, No Rash Course - Vital Signs Last Recorded V/S: Last Vital Signs Temp 96.8 F L 09/09/19 13:45 Pulse 110 H 09/09/19 13:45 Resp 31 H 09/09/19 13:45 BP 126/97 H 09/09/19 13:45 Pulse Ox 99 09/09/19 13:45 - Orders/Labs/Meds Labs: Laboratory Tests 09/09/19 09/09/19 09/09/19 Range/Units 14:37 14:37 15:05 WBC 6.5 (4.5-11.0) K/uL RBC 4.02 (3.30-5.50) M/uL Hgb 11.5 L (12.0-15.0) g/dL Hct 35.2 L (36.0-48.0) % MCV 88 (80-98) fL MCH 29 (27-31) pg MCHC 33 (32-36) % Plt Count 291 (150-400) K/uL Sodium 143 (140-148) mmol/L Potassium 3.1 L (3.6-5.2) mmol/L Chloride 106 (100-108) mmol/L Carbon Dioxide 25 (21-32) mmol/L Anion Gap 15.1 H (5.0-14.0) mmol/L BUN 15 D (7-18) mg/dL Creatinine 1.0 (0.6-1.0) mg/dL Est Cr Clr Drug Dosing 77.08 mL/min Estimated GFR (MDRD) > 60 (>60) Glucose 83 (74-106) mg/dL Calcium 9.0 D (8.5-10.1) mg/dL Magnesium 1.6 L (1.8-2.4) mg/dL Troponin I < 0.017 (0.000-0.056) ng/mL Urine Color (YELLOW) Urine Appearance (CLEAR) Urine pH (5.0-8.0) Ur Specific [place] (1.008-1.030) Urine Protein (NEGATIVE) mg/dL Urine Glucose (UA) (NEGATIVE) mg/dL Urine Ketones (NEGATIVE) mg/dL Urine Occult Blood (NEGATIVE) Urine Nitrite (NEGATIVE) Urine Bilirubin (NEGATIVE) Urine Urobilinogen (0.2-1.0) EU/dL Ur Leukocyte Esterase (NEGATIVE) Urine RBC (0-5) Urine WBC (0-5) Ur Epithelial Cells Amorphous Sediment Urine Bacteria Urine Mucus Urine Opiates Screen (NEGATIVE) Ur Oxycodone Screen (NEGATIVE) Urine Methadone Screen (NEGATIVE) Ur Propoxyphene Screen (NEGATIVE) Ur Barbiturates Screen (NEGATIVE) Ur Tricyclics Screen (NEGATIVE) Ur Phencyclidine Scrn (NEGATIVE) Ur Amphetamine Screen (NEGATIVE) U Methamphetamines Scrn (NEGATIVE) Urine MDMA Screen (NEGATIVE) U Benzodiazepines Scrn (NEGATIVE) U Cocaine Metab Screen (NEGATIVE) U Marijuana (THC) Screen (NEGATIVE) 09/09/19 09/09/19 Range/Units 18:14 18:14 WBC (4.5-11.0) K/uL RBC (3.30-5.50) M/uL Hgb (12.0-15.0) g/dL Hct (36.0-48.0) % MCV (80-98) fL MCH (27-31) pg MCHC (32-36) % Plt Count (150-400) K/uL Sodium (140-148) mmol/L Potassium (3.6-5.2) mmol/L Chloride (100-108) mmol/L Carbon Dioxide (21-32) mmol/L Anion Gap (5.0-14.0) mmol/L BUN (7-18) mg/dL Creatinine (0.6-1.0) mg/dL Est Cr Clr Drug Dosing mL/min Estimated GFR (MDRD) (>60) Glucose (74-106) mg/dL Calcium (8.5-10.1) mg/dL Magnesium (1.8-2.4) mg/dL Troponin I (0.000-0.056) ng/mL Urine Color [place] A (YELLOW) Urine Appearance Cloudy A (CLEAR) Urine pH 6.0 (5.0-8.0) Ur Specific [place] >= 1.030 (1.008-1.030) Urine Protein 30 H (NEGATIVE) mg/dL Urine Glucose (UA) Negative (NEGATIVE) mg/dL Urine Ketones Negative (NEGATIVE) mg/dL Urine Occult Blood Negative (NEGATIVE) Urine Nitrite Negative (NEGATIVE) Urine Bilirubin Small H (NEGATIVE) Urine Urobilinogen 0.2 (0.2-1.0) EU/dL Ur Leukocyte Esterase Trace H (NEGATIVE) Urine RBC 0-5 (0-5) Urine WBC 0-5 (0-5) Ur Epithelial Cells Many Amorphous Sediment Many Urine Bacteria Not seen Urine Mucus Few Urine Opiates Screen Negative (NEGATIVE) Ur Oxycodone Screen Negative (NEGATIVE) Urine Methadone Screen Negative (NEGATIVE) Ur Propoxyphene Screen Negative (NEGATIVE) Ur Barbiturates Screen Negative (NEGATIVE) Ur Tricyclics Screen Presumptive positive H (NEGATIVE) Ur Phencyclidine Scrn Negative (NEGATIVE) Ur Amphetamine Screen Presumptive positive H (NEGATIVE) U Methamphetamines Scrn Presumptive positive H (NEGATIVE) Urine MDMA Screen Presumptive positive H (NEGATIVE) U Benzodiazepines Scrn Presumptive positive H (NEGATIVE) U Cocaine Metab Screen Negative (NEGATIVE) U Marijuana (THC) Screen Negative (NEGATIVE) Meds: Medications Discontinued Medications Generic Name Dose Route Start Last Admin Trade Name Freq PRN Reason Stop Dose Admin Lactated Ringer's 1,000 mls @ 1,000 mls/hr 09/09/19 18:58 09/09/19 19:08 Ringers, Lactated IV 09/09/19 19:57 1,000 mls/hr BOLUS ONE Administration Lorazepam 1 mg 09/09/19 13:29 09/09/19 13:40 Ativan IM 09/09/19 13:30 1 mg ONETIME ONE Administration Lorazepam 1 mg 09/09/19 14:24 09/09/19 14:30 Ativan IM 09/09/19 14:25 1 mg ONETIME ONE Administration Magnesium Oxide 800 mg 09/09/19 15:22 09/09/19 15:25 Magnesium Oxide PO 09/09/19 15:23 800 mg ONETIME ONE Administration Potassium Chloride 40 meq 09/09/19 15:04 09/09/19 15:19 Potassium Chloride PO 09/09/19 15:05 40 meq ONETIME ONE Administration Departure - Departure Disposition: Home, Self-Care 01 Condition: Fair Clinical Impression: Mild dehydration, Methamphetamine abuse, Hypokalemia, Hypomagnesemia - Discharge Information *PRESCRIPTION DRUG MONITORING PROGRAM REVIEWED*: No *COPY OF PRESCRIPTION DRUG MONITORING REPORT IN PATIENT [place]: No Instructions: Chemical Dependency, Finding Treatment for Addiction, Recovering From Addiction Referrals: PCP,None [Primary Care Provider] - Forms: ED Department Discharge Care Plan Goals: Stay hydrated, take any regular medications that you are normally prescribed, and avoid further abuse of drugs especially methamphetamine. It is killing you. If you decide you want to go to detox please return and it can be arranged. Sepsis Event Note - Focused Exam Vital Signs: Vital Signs Temp Pulse Resp BP Pulse Ox 09/09/19 13:45 96.8 F L 110 H 31 H 126/97 H 99 09/09/19 13:41 96.8 F L 110 H 31 H 126/97 H 99 Date Exam was Performed: 09/09/19 Time Exam was Performed: 18:59 <Miah Sarah - Last Filed: 09/09/19 22:08> Course - Re-Assessments/Exams Free Text/Narrative Re-Assessment/Exam: 09/09/19 20:29 After the full liter of fluid the patient was arousable and able to communicate although speech was still slurred and she appeared jumpy. She refused detox so was discharged with her family. Departure - Departure Time of Disposition: 20:37 Sepsis Event Note - Focused Exam Date Exam was Performed: 09/09/19 Time Exam was Performed: 22:07
[2019-09-09] MEDS ORDERED: Potassium Chloride 10 MEQ Cap.ER PO ONE (15:04)
[2019-09-09] MEDS ORDERED: Magnesium Oxide 400 MG Tab PO ONE (15:22)
[2019-09-09] MEDS ORDERED: Lactated Ringers 1,000 ML IV ONE (18:58)
== END 2019-09-09 20:55 | disposition home or self-care (01) ==
LOC: JP.ED 13:28
DX: E86.0 Dehydration (principal); F15.10 Other stimulant abuse, uncomplicated; E87.6 Hypokalemia; E83.42 Hypomagnesemia; F32.9 Major depressive disorder, single episode, unspecified; F41.9 Anxiety disorder, unspecified; Z79.899 Other long term (current) drug therapy
CPT/HCPCS: 36415; 80048; 80305; 81001; 83735; 84484; 85027; 96360; 96372; 99284; A9270; J2060; J7120

== ENCOUNTER 2019-10-10 14:58 | Emergency (ER) | payer MEDICAID ==
[2019-10-10] MEDS ORDERED: Sodium Chloride 0.9% 1,000 ML IV ONE (16:30)
[2019-10-10] MEDS ORDERED: Acetaminophen 500 MG Tab PO ONE (16:30)
[2019-10-10] MEDS ORDERED: Sodium Chloride 0.9% 10 ML Syringe FLUSH PRN (16:30)
--- NOTE | 2019-10-10 16:30 | EDM.PDOC ---
ED HPI GENERAL MEDICAL PROBLEM - General Chief Complaint: General Stated Complaint: VOMITING Time Seen by Provider: 10/10/19 16:18 Source of Information: Reports: Patient History Limitations: Reports: No Limitations - History of Present Illness Onset: Gradual Duration: Day(s): (2) Location: Reports: Abdomen Quality: Reports: Ache, Dull Severity: Moderate - Related Data Allergies Allergy/AdvReac Type Severity Reaction Status Date / Time No Known Allergies Allergy Verified 10/10/19 15:39 Home Meds: Home Meds Fluticasone Propionate [Flonase] 2 spray IN ASDIRECTED PRN 07/07/18 [History] Sertraline [Zoloft] 150 mg PO DAILY 08/10/19 [History] hydrOXYzine HCL [hydrOXYzine] 1 tab PO QID PRN 08/10/19 [History] lamoTRIgine [Lamotrigine] 1 tab PO DAILY 08/10/19 [History] Levothyroxine 1 tab PO DAILY 10/10/19 [History] Past Medical History - Past Health History Medical/Surgical History: Denies Medical/Surgical History HEENT History: Reports: None Respiratory History: Reports: None Other Respiratory History: pneumonia 2014 Genitourinary History: Reports: Pyelonephritis, UTI, Recurrent [employer] History: Reports: Neurological History: Reports: Head Trauma, Migraines Psychiatric History: Reports: Anxiety, Depression, PTSD Endocrine/Metabolic History: Reports: Hyperthyroidism, Other (See Below) Other Endocrine/Metabolic History: graves disease - Infectious Disease History Infectious Disease History: Reports: Chicken Pox, Pertussis (Whooping Cough), Shingles - Past Surgical History Head Surgeries/Procedures: Reports: None HEENT Surgical History: Reports: Adenoidectomy, Tonsillectomy Cardiovascular Surgical History: Reports: None Female Surgical History: Reports: Section, Tubal Ligation Endocrine Surgical History: Reports: None Neurological Surgical History: Reports: None Musculoskeletal Surgical History: Reports: None Social & Family History - Family History Family Medical History: Noncontributory - Tobacco Use Smoking Status *Q: Current Every Day Smoker Years of Tobacco use: 17 Packs/Tins Daily: 1 - Caffeine Use Caffeine Use: Reports: Soda - Living Situation & Occupation Living situation: Reports: Single Occupation: Employed (lives with her 4 children age 4 yr to 16 yrs. 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 Denies: Black Stool, Bloody Stool, Constipation, Melena ED EXAM, GENERAL - Physical Exam Exam: See Below Exam Limited By: No Limitations General Appearance: Alert, Mild Distress Throat/Mouth: Normal Voice Neck: Non-Tender Respiratory/Chest: Lungs Clear Cardiovascular: Regular Rate, Rhythm GI/Abdominal: Normal Bowel Sounds, Soft, Tender (Diffuse tenderness.). No: Guarding, Rigid Back Exam: Normal Inspection Course - Vital Signs Last Recorded V/S: Last Vital Signs Temp 37.2 C 10/10/19 15:47 Pulse 69 10/10/19 17:52 Resp 16 10/10/19 17:52 BP 116/85 10/10/19 17:52 Pulse Ox 100 10/10/19 17:52 - Orders/Labs/Meds Orders: Active Orders 24 hr Category Date Time Status Saline Lock Insert [OM.PC] Routine Oth 10/10/19 16:30 Ordered Labs: Laboratory Tests 10/10/19 10/10/19 Range/Units 16:30 16:30 WBC 8.5 (4.5-11.0) K/uL RBC 4.69 (3.30-5.50) M/uL Hgb 13.1 (12.0-15.0) g/dL Hct 41.6 (36.0-48.0) % MCV 89 (80-98) fL MCH 28 (27-31) pg MCHC 32 (32-36) % Plt Count 294 (150-400) K/uL Neut % (Auto) 72 H (36-66) % Lymph % (Auto) 19 L (24-44) % [place] % (Auto) 7 H (2-6) % Eos % (Auto) 2 (2-4) % Baso % (Auto) 0 (0-1) % Sodium 137 L (140-148) mmol/L Potassium 3.5 L (3.6-5.2) mmol/L Chloride 102 (100-108) mmol/L Carbon Dioxide 28 (21-32) mmol/L Anion Gap 10.5 (5.0-14.0) mmol/L BUN 12 (7-18) mg/dL Creatinine 0.8 (0.6-1.0) mg/dL Est Cr Clr Drug Dosing 96.36 mL/min Estimated GFR (MDRD) > 60 (>60) Glucose 88 (74-106) mg/dL Calcium 8.5 (8.5-10.1) mg/dL C-Reactive Protein 0.20 (0.0-0.3) mg/dL Meds: Medications Discontinued Medications Generic Name Dose Route Start Last Admin Trade Name Freq PRN Reason Stop Dose Admin Acetaminophen 1,000 mg 10/10/19 16:30 10/10/19 17:03 Tylenol Extra Strength PO 10/10/19 16:31 1,000 mg ONETIME ONE Administration Sodium Chloride 1,000 mls @ 999 mls/hr 10/10/19 16:30 10/10/19 17:04 Normal Saline IV 10/10/19 17:30 999 mls/hr .BOLUS ONE Administration Sodium Chloride 10 ml 10/10/19 16:30 10/10/19 17:03 Saline Flush FLUSH 10 ml ASDIRECTED PRN Administration Keep Vein Open - Re-Assessments/Exams Free Text/Narrative Re-Assessment/Exam: 10/10/19 21:33 Patient received 1 L of normal saline over 1 hour along with acetaminophen 1000 mg. When I returned later to recheck symptoms, she was sleeping and in no distress. Labs are in the normal range. I recommend nondairy diet as tolerated until feeling better. Adequate fluid intake to ameliorate dehydration and use of acetaminophen as needed for fever or other discomfort. Recheck with primary care if not better in one week or so. Reasons to return to emergency department reviewed. She was discharged in stable condition. 10/10/19 21:33 Departure - Departure Time of Disposition: 18:38 Disposition: Home, Self-Care 01 Condition: Good Clinical Impression: Nausea and vomiting Qualifiers: Vomiting type: unspecified Vomiting Intractability: unspecified Qualified Code( s): R11.2 - Nausea with vomiting, unspecified - Discharge Information *PRESCRIPTION DRUG MONITORING PROGRAM REVIEWED*: Not Applicable *COPY OF PRESCRIPTION DRUG MONITORING REPORT IN PATIENT [place]: Not Applicable Instructions: Nausea and Vomiting, Adult, [id number] Referrals: Neisha Wisdom PA-C [Primary Care Provider] - Forms: ED Department Discharge Additional Instructions: Avoid heavy or fatty foods until feeling better. Non-dairy foods and drinks with small amounts frequently will sit better with her system area and use Tylenol as needed for pain. I expect symptoms will gradually improve over the next couple days. Return to ER if feeling worse. Sepsis Event Note - Evaluation Sepsis Screening Result: No Definite Risk - Focused Exam Vital Signs: Vital Signs Temp Pulse Resp BP Pulse Ox 10/10/19 17:52 69 16 116/85 100 10/10/19 15:47 37.2 C 89 16 128/92 H 100 10/10/19 15:23 37.2 C 89 16 128/92 H 100 Date Exam was Performed: 10/10/19 Time Exam was Performed: 21:32 - My Orders Last 24 Hours: My Active Orders 10/10/19 16:30 Saline Lock Insert [OM.PC] Routine - Assessment/Plan Last 24 Hours: My Active Orders 10/10/19 16:30 Saline Lock Insert [OM.PC] Routine
== END 2019-10-10 18:56 | disposition home or self-care (01) ==
LOC: JP.ED 14:58
DX: R11.2 Nausea with vomiting, unspecified (principal); F41.9 Anxiety disorder, unspecified; F32.9 Major depressive disorder, single episode, unspecified; E05.90 Thyrotoxicosis, unspecified without thyrotoxic crisis or storm; F17.210 Nicotine dependence, cigarettes, uncomplicated; Z79.899 Other long term (current) drug therapy
CPT/HCPCS: 36415; 80048; 85025; 86140; 96360; 99284; A9270; J7030

== ENCOUNTER 2022-10-07 07:23 | Day surgery (SDC) | payer MEDICAID ==
[~2022-10-07 07:23] MED LIST: Midazolam 1 MG/ML 2 ML SDV ONE; Propofol 200 MG/20 ML SDV ONE; fentaNYL 100 MCG/2 ML SDV ONE
[2022-10-07] MEDS ORDERED: Lactated Ringers 1,000 ML IV SCH (08:00)
== END 2022-10-07 09:45 | disposition home or self-care (01) ==
LOC: JP.SDS 07:23
PROVIDERS: ATTEND Student in an Organized Health Care Education/Training Program
DX: K90.0 Celiac disease (principal); R76.9 Abnormal immunological finding in serum, unspecified; F41.9 Anxiety disorder, unspecified; F32.A Depression, unspecified
CPT/HCPCS: 43235; 81025; J2250; J2704; J3010; J7120

== ENCOUNTER 2022-10-08 08:56 | Day surgery (SDC) | payer MEDICAID ==
[~2022-10-08 08:56] MED LIST changes: -Propofol 200 MG/20 ML SDV ONE; -fentaNYL 100 MCG/2 ML SDV ONE
[2022-10-08] MEDS ORDERED: Propofol 200 MG/20 ML SDV ONE (08:57)
[2022-10-08] MEDS ORDERED: fentaNYL 50 MCG/ML SDV ONE (08:57)
[2022-10-08] MEDS ORDERED: Lactated Ringers 1,000 ML IV SCH (09:30)
== END 2022-10-08 11:40 | disposition home or self-care (01) ==
LOC: JP.SDS 08:56
PROVIDERS: ATTEND Family Medicine
DX: K31.89 Other diseases of stomach and duodenum (principal); E03.9 Hypothyroidism, unspecified; E05.00 Thyrotoxicosis with diffuse goiter without thyrotoxic crisis or storm; F41.9 Anxiety disorder, unspecified; F32.A Depression, unspecified; F43.10 Post-traumatic stress disorder, unspecified; F15.90 Other stimulant use, unspecified, uncomplicated; Z83.79 Family history of other diseases of the digestive system
CPT/HCPCS: 43239; 88305; J2250; J2704; J3010; J7120

== ENCOUNTER 2022-11-17 16:59 | Emergency (ER) | payer MEDICAID ==
[2022-11-17] MEDS ORDERED: LORazepam 2 MG/ML SDV IVPUSH ONE (17:22)
[2022-11-17] MEDS ORDERED: droPERidol 5 MG/2 ML SDV IVPUSH ONE (17:22)
[2022-11-17] MEDS ORDERED: Sodium Chloride 0.9% 1,000 ML IV SCH (17:30)
[2022-11-17 18:14] LABS: ESTIMATED GFR 74 mL/min (>60)
[2022-11-17] MEDS ORDERED: Ondansetron 4 MG/2 ML SDV IVPUSH ONE (18:52)
[2022-11-17] MEDS ORDERED: Scopolamine 1.5 MG Transdermal Patch TRDERM ONE (19:47)
[2022-11-17] MEDS ORDERED: Promethazine 12.5 MG in Sodium Chloride 0.9% 50 ML IV ONE (19:50)
== END 2022-11-17 21:03 | disposition home or self-care (01) ==
LOC: JP.ED 16:59
DX: R11.2 Nausea with vomiting, unspecified (principal); I10 Essential (primary) hypertension; E03.9 Hypothyroidism, unspecified; F17.210 Nicotine dependence, cigarettes, uncomplicated; Z86.16 Personal history of COVID-19; Z79.899 Other long term (current) drug therapy
CPT/HCPCS: 36415; 80053; 83605; 83690; 84443; 85025; 96361; 96374; 96375; 99284; A9270; J1790; J2060; J2405; J2550; J3490; J7030; 99283